=== PATIENT | male | born 1985 | race African-American/Black ===

== ENCOUNTER 2016-09-05 20:28 | Inpatient (IN) | payer BC ==
[2016-09-05] MEDS ORDERED: Pantoprazole 40 MG Vial IVPUSH ONE (20:46)
[2016-09-05] MEDS ORDERED: Ondansetron 4 MG/2 ML SDV IVPUSH ONE ×2 (20:46→23:45)
[2016-09-05] MEDS ORDERED: Sodium Chloride 0.9% 10 ML Syringe FLUSH PRN (20:46)
[2016-09-05] MEDS ORDERED: Sodium Chloride 0.9% 1,000 ML IV ONE (20:46)
[2016-09-05] MEDS ORDERED: HYDROmorphone 2 MG/ML Syringe IVPUSH ONE ×2 (20:46→22:35)
[2016-09-05] MEDS ORDERED: Sodium Chloride 0.9% 2.5 ML Syringe FLUSH PRN (20:46)
--- NOTE | 2016-09-05 20:53 | EDM.PDOC ---
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 Sierra at [facility] for GI care and here locally for our clinic. 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 He has had an extensive scar but no history of bowel obstructions after the surgery. He has had multiple polyps removed with his endoscopies in the past. He has no history of ulcer disease. Patient states he has had intermittent episodes of mid abdominal and epigastric pain in the past but they have never lasted very long. He states he is supposed to eat high-fiber diet and push hydration but he is not very good with his diet. The patient states he normally has 4-5 bowel movements a day which are loose but never watery black or bloody and today he only had one bowel movement which is unusual for him. Patient presents today with periumbilical pain that started this morning around 7 AM but seemed to side on its own and then the pain returned again around 12 noon after eating some chips and drinking Gatorade. Patient states he feels very bloated and has had nausea and vomiting this afternoon but not continuously. He's had normal urine output and has had no fevers. Patient with a bowel movement today denies any black or bloody stools. He does not have any chest pain or shortness of breath and states the pain is localized in the periumbilical area and it does not migrate it has been constant since 12 noon. It does come and go in intensity it is crampy in nature. Patient did not take any medications prior to coming here. Patient does have a followup scheduled with Dr. Sierra in October for an upper endoscopy and a colonoscopy. Review of systems: As per history of present illness and below otherwise all systems reviewed and negative. Past medical history: As per history of present illness and as reviewed below otherwise noncontributory. Surgical history: As per history of present illness and as reviewed below otherwise noncontributory. Social history: No reported history of drug or alcohol abuse. Family history: As per history of present illness and as reviewed below otherwise noncontributory. Physical exam: General: Well-developed thin male who is nontoxic but looks uncomfortable in the room with speaking clearly and easily. HEENT: Atraumatic, normocephalic, pupils reactive, negative for conjunctival pallor or scleral icterus, mucous membranes tacky, throat clear, neck supple, nontender, trachea midline. Lungs: Clear to auscultation, breath sounds equal bilaterally, chest nontender. Heart: S1S2, regular, negative for clicks, rubs, or JVD. Abdomen: Soft, nondistended, there is an extensive periumbilical scar without any evidence of hernial defects but there is discrete tenderness in this region with some voluntary guarding but no involuntary guarding. There is tympany on percussion throughout the entire upper abdomen and there is some mild diffuse tenderness throughout the lower abdomen. Bowel sounds are very hypoactive Negative for masses or hepatosplenomegaly. Negative for costovertebral tenderness. Pelvis: Stable nontender. Genitourinary: Deferred. Rectal: Deferred. Extremities: Atraumatic, negative for cords or calf pain. Neurovascular unremarkable. Neuro: Awake, alert, oriented. Cranial nerves II through XII unremarkable. Cerebellum unremarkable. Motor and sensory unremarkable throughout. Exam nonfocal. Diagnostics: CBC CMP amylase lipase lactic acid UA and CT scan of the abdomen and pelvis Therapeutics: IV fluids Protonix Dilaudid Zofran 2310: All testing results were discussed with the patient and at bedside and the patient is agreeable to admission. I discussed the case with our surgeon aws consultant Dr. Wilder at [phone] and with our hospitalist Dr. Farooq at [phone]. They're aware of the patient's history presentation and testing results and are agreeable for admission and consultation. I will write for maintenance fluids and have advised the patient move yesterday bowel rest until he is seen in the morning. Impression: Small bowel obstruction Definitive disposition and diagnosis as appropriate pending reevaluation and review of above. abdominal Pain Score (Numeric/FACES): 8 - Related Data Allergies Allergy/AdvReac Type Severity Reaction Status Date / Time aspirin Allergy Abdominal Verified 09/05/16 20:31 Pain Home Meds: Home Meds Omeprazole Magnesium [Prilosec] 10 mg PO DAILY 09/05/16 [History] Past Medical History HEENT History: Reports: None Cardiovascular History: Reports: None Respiratory History: Reports: None Gastrointestinal History: Reports: Colon polyp Genitourinary History: Reports: None Musculoskeletal History: Reports: None Neurological History: Reports: None Psychiatric History: Reports: None Endocrine/Metabolic History: Reports: None - Infectious Disease History Infectious Disease History: Reports: None Social & Family History - Family History Family Medical History: Noncontributory - Tobacco Use Smoking Status *Q: Never Smoker - Caffeine Use Caffeine Use: Reports: None - Recreational Drug Use Recreational Drug Use: No ED ROS GENERAL - Review of Systems Review Of Systems: ROS reveals no pertinent complaints other than HPI. ED EXAM, GENERAL - Physical Exam Exam: See Below (See dictation) Course - Vital Signs Last Recorded V/S: Last Vital Signs Temp 36.6 C 09/05/16 20:32 Pulse 69 09/05/16 22:22 Resp 18 09/05/16 22:22 BP 116/61 09/05/16 22:22 Pulse Ox 99 09/05/16 22:22 - Orders/Labs/Meds Orders: Active Orders 24 hr Category Date Time Status Patient Status [ADT] Stat ADT 09/05/16 23:10 Ordered Notify Provider Consults [RC] ASDIRECTED Care 09/05/16 23:04 Active Consult to Physician [CONS] Stat Cons 09/05/16 23:04 Active Abdomen Pelvis w Cont [CT] Stat Exams 09/05/16 20:46 Taken Sodium Chloride 0.9% [Normal Saline] 1,000 ml Med 09/05/16 23:15 Ordered IV ASDIRECTED Sodium Chloride 0.9% [Saline Flush] Med 09/05/16 20:46 Active 10 ml FLUSH ASDIRECTED PRN Sodium Chloride 0.9% [Saline Flush] Med 09/05/16 20:46 Active 2.5 ml FLUSH ASDIRECTED PRN Saline Lock Insert [OM.PC] Stat Oth 09/05/16 20:45 Ordered Medication Orders Sodium Chloride (Saline Flush) 10 ml FLUSH ASDIRECTED PRN PRN Reason: Keep Vein Open Sodium Chloride (Saline Flush) 2.5 ml FLUSH ASDIRECTED PRN PRN Reason: Keep Vein Open Labs: Laboratory Tests 09/05/16 09/05/16 09/05/16 Range/Units 21:20 21:20 21:20 WBC 9.46 (4.0-11.0) K/uL RBC 7.00 H (4.50-5.90) M/uL Hgb 12.3 L (13.0-17.0) g/dL Hct 37.8 L (38.0-50.0) % MCV 54.0 L (80.0-98.0) fL MCH 17.6 L (27.0-32.0) pg MCHC 32.5 (31.0-37.0) g/dL RDW Std Deviation 41.7 (28.0-62.0) fl RDW Coeff of David 23 H (11.0-15.0) % Plt Count 305 (150-400) K/uL Neut % (Auto) 75.6 (48.0-80.0) % Lymph % (Auto) 19.2 (16.0-40.0) % Hanson % (Auto) 4.7 (0.0-15.0) % Eos % (Auto) 0.3 (0.0-7.0) % Baso % (Auto) 0.2 (0.0-1.5) % Neut # 7.2 H (1.4-5.7) K/uL Lymph # 1.8 (0.6-2.4) K/uL Hanson # 0.4 (0.0-0.8) K/uL Eos # 0.0 (0.0-0.7) K/uL Baso # 0.0 (0.0-0.1) K/uL Nucleated RBC % 0.0 /100WBC Nucleated RBCs # 0 K/uL Lactate 2.1 H (0.20-2.00) mmol/L Sodium 141 (136-146) mmol/L Potassium 3.7 (3.5-5.1) mmol/L Chloride 105 (98-110) mmol/L Carbon Dioxide 23 (21-31) mmol/L BUN 7 (6.0-23.0) mg/dL Creatinine 0.9 (0.6-1.5) mg/dL Est Cr Clr Drug Dosing 116.74 mL/min Estimated GFR (MDRD) > 60.0 ml/min Glucose 108 (60-110) mg/dL Calcium 9.8 (8.8-10.8) mg/dL Total Bilirubin 1.4 (0.1-1.5) mg/dL AST 26 (5-40) IU/L ALT 29 (8-54) IU/L Alkaline Phosphatase 77 (40-150) Total Protein 7.6 (6.0-8.0) g/dL Albumin 4.3 (3.5-5.0) g/dL Globulin 3.3 (2.0-3.5) g/dL Albumin/Globulin Ratio 1.3 (1.3-2.8) Amylase 77 (10-90) U/L Lipase 18 (7-80) U/L Urine Color Urine Appearance Urine pH (5.0-8.0) Ur Specific [place] (1.001-1.035) Urine Protein (NEGATIVE) mg/dL Urine Glucose (UA) (NEGATIVE) mg/dL Urine Ketones (NEGATIVE) mg/dL Urine Occult Blood (NEGATIVE) Urine Nitrite (NEGATIVE) Urine Bilirubin (NEGATIVE) Urine Urobilinogen (<2.0) EU/dL Ur Leukocyte Esterase (NEGATIVE) Urine RBC (0-2/HPF) Urine WBC (0-5/HPF) Ur Epithelial Cells (NONE-FEW) Amorphous Sediment (NEGATIVE) Urine Bacteria (NEGATIVE) Urine Mucus (NONE-MOD) 09/05/16 Range/Units 22:13 WBC (4.0-11.0) K/uL RBC (4.50-5.90) M/uL Hgb (13.0-17.0) g/dL Hct (38.0-50.0) % MCV (80.0-98.0) fL MCH (27.0-32.0) pg MCHC (31.0-37.0) g/dL RDW Std Deviation (28.0-62.0) fl RDW Coeff of David (11.0-15.0) % Plt Count (150-400) K/uL Neut % (Auto) (48.0-80.0) % Lymph % (Auto) (16.0-40.0) % Hanson % (Auto) (0.0-15.0) % Eos % (Auto) (0.0-7.0) % Baso % (Auto) (0.0-1.5) % Neut # (1.4-5.7) K/uL Lymph # (0.6-2.4) K/uL Hanson # (0.0-0.8) K/uL Eos # (0.0-0.7) K/uL Baso # (0.0-0.1) K/uL Nucleated RBC % /100WBC Nucleated RBCs # K/uL Lactate (0.20-2.00) mmol/L Sodium (136-146) mmol/L Potassium (3.5-5.1) mmol/L Chloride (98-110) mmol/L Carbon Dioxide (21-31) mmol/L BUN (6.0-23.0) mg/dL Creatinine (0.6-1.5) mg/dL Est Cr Clr Drug Dosing mL/min Estimated GFR (MDRD) ml/min Glucose (60-110) mg/dL Calcium (8.8-10.8) mg/dL Total Bilirubin (0.1-1.5) mg/dL AST (5-40) IU/L ALT (8-54) IU/L Alkaline Phosphatase (40-150) Total Protein (6.0-8.0) g/dL Albumin (3.5-5.0) g/dL Globulin (2.0-3.5) g/dL Albumin/Globulin Ratio (1.3-2.8) Amylase (10-90) U/L Lipase (7-80) U/L Urine Color YELLOW Urine Appearance SLT CLOUDY Urine pH 7.0 (5.0-8.0) Ur Specific [place] 1.020 (1.001-1.035) Urine Protein TRACE (NEGATIVE) mg/dL Urine Glucose (UA) NEGATIVE (NEGATIVE) mg/dL Urine Ketones 15 H (NEGATIVE) mg/dL Urine Occult Blood NEGATIVE (NEGATIVE) Urine Nitrite NEGATIVE (NEGATIVE) Urine Bilirubin NEGATIVE (NEGATIVE) Urine Urobilinogen 0.2 (<2.0) EU/dL Ur Leukocyte Esterase NEGATIVE (NEGATIVE) Urine RBC 0-2 (0-2/HPF) Urine WBC 0-2 (0-5/HPF) Ur Epithelial Cells RARE (NONE-FEW) Amorphous Sediment LIGHT (NEGATIVE) Urine Bacteria FEW (NEGATIVE) Urine Mucus LIGHT (NONE-MOD) Meds: Medications Generic Name Dose Route Start Last Admin Trade Name Freq PRN Reason Stop Dose Admin Sodium Chloride 10 ml 09/05/16 20:46 Saline Flush FLUSH ASDIRECTED PRN Keep Vein Open Sodium Chloride 2.5 ml 09/05/16 20:46 Saline Flush FLUSH ASDIRECTED PRN Keep Vein Open Discontinued Medications Generic Name Dose Route Start Last Admin Trade Name Perezq PRN Reason Stop Dose Admin Hydromorphone HCl 1 mg 09/05/16 20:46 09/05/16 21:21 Dilaudid IVPUSH 09/05/16 20:47 1 mg ONETIME ONE Administration Hydromorphone HCl 1 mg 09/05/16 22:35 09/05/16 22:38 Dilaudid IVPUSH 09/05/16 22:36 1 mg ONETIME ONE Administration Sodium Chloride 1,000 mls @ 999 mls/hr 09/05/16 20:46 09/05/16 20:57 Normal Saline IV 09/05/16 21:46 999 mls/hr STAT ONE Administration Iopamidol 100 ml 09/05/16 21:24 Isovue Multipack-370 (76%) IVPUSH 09/05/16 21:25 ONETIME STA Ondansetron HCl 4 mg 09/05/16 20:46 09/05/16 21:20 Zofran IVPUSH 09/05/16 20:47 4 mg ONETIME ONE Administration Pantoprazole Sodium 80 mg 09/05/16 20:46 09/05/16 21:20 Protonix Iv IVPUSH 09/05/16 20:47 80 mg .BOLUS ONE Administration Departure - Departure Time of Disposition: 23:12 Disposition: Refer to Observation Condition: good Clinical Impression: Small bowel obstruction Forms: ED Department Discharge - My Orders Last 24 Hours: My Active Orders 09/05/16 20:45 Saline Lock Insert [OM.PC] Stat 09/05/16 20:46 Abdomen Pelvis w Cont [CT] Stat Sodium Chloride 0.9% [Saline Flush] 10 ml FLUSH ASDIRECTED PRN Sodium Chloride 0.9% [Saline Flush] 2.5 ml FLUSH ASDIRECTED PRN 09/05/16 23:04 Notify Provider Consults [RC] ASDIRECTED Consult to Physician [CONS] Stat 09/05/16 23:10 Patient Status [ADT] Stat 09/05/16 23:15 Sodium Chloride 0.9% [Normal Saline] 1,000 ml IV ASDIRECTED - Assessment/Plan Last 24 Hours: My Active Orders 09/05/16 20:45 Saline Lock Insert [OM.PC] Stat 09/05/16 20:46 Abdomen Pelvis w Cont [CT] Stat Sodium Chloride 0.9% [Saline Flush] 10 ml FLUSH ASDIRECTED PRN Sodium Chloride 0.9% [Saline Flush] 2.5 ml FLUSH ASDIRECTED PRN 09/05/16 23:04 Notify Provider Consults [RC] ASDIRECTED Consult to Physician [CONS] Stat 09/05/16 23:10 Patient Status [ADT] Stat 09/05/16 23:15 Sodium Chloride 0.9% [Normal Saline] 1,000 ml IV ASDIRECTED
[2016-09-05] MEDS ORDERED: Iopamidol 755 MG/ML 500 ML Multipack Bottle IVPUSH STA (21:24)
[2016-09-05 21:55] LABS: CHLORIDE,CL 105 mmol/L (98-110); SODIUM,NA 141 mmol/L (136-146)
[2016-09-05] MEDS ORDERED: Sodium Chloride 0.9% 1,000 ML IV SCH (23:15)
[2016-09-06] MEDS ORDERED: HYDROmorphone 2 MG/ML Syringe IVPUSH PRN ×3 (00:43→01:02)
[2016-09-06] MEDS: Sodium Chloride 0.9% 1,000 ML IV SCH ×3 (03:15→19:05)
[2016-09-06] MEDS: HYDROmorphone 1 MG/ML Syringe IVPUSH PRN ×5 (03:32→21:32)
[2016-09-06] MEDS: Ondansetron 4 MG/2 ML SDV IVPUSH PRN ×3 (05:13→21:29)
--- NOTE | 2016-09-06 08:08 | PCM.HP ---
H&P History of Present Illness - General Date of Service: 09/06/16 Admit Problem/Dx: Admission Diagnosis/Problem Admission Diagnosis/Problem Small bowel obstruction Source of Information: Patient History Limitations: Reports: No limitations - History of Present Illness Initial Comments - Free Text/Narative: This 31 year old male with pmh of Peutz-Jeghers syndrome and abdominal surgery for bowel resection "years ago" and has mesh in place. He states he normally has 4-5 bowel movements a day which are loose. he has not noticed black or bloody stools. Yesterday he had only 1 BM which is unusual for him. He presented to the ED with periumbilical pain that started yesterday morning around 7 am, but subsided on its own. Then around 12 noon after eating chips and gatorade he started feeling very bloated and have nausea and vomiting intermittently. He denies fevers, chest pain or palpitations or SOB. The pain is localized to upper mid abdomen and periumbilical and is constant with intermittently cramping and increase in pain. He does not smoke or use tobacco products, he drinks approximately 1 beer a day, and denies recreational drug use. In the ED, WBC 9,460, hgb 12.3. lactate 2.1, BUN 7 Cr 0.9. UA negative. A CT Abd /pelvis was obtained which revealed "small bowel obstruction, no definite transition point identified. Small bowel intussesception within the LLQ, but this did not appear to be the cause of the small bowel obstruction since bowel loops directly proximal to this are not dilated, a mass lesion acting as a lead point can not be excluded, GI consultation is recommended, post operative changes of the ileococlic anastomosis and ventral herniorrhaphy". General Surgeon, Dr. David Wilder was consulted regarding this admission. He recommended conservative treatment, but to also contact GI specialist, Dr. Sierra in [place] who sees patient. I spoke with Dr. Sierra regarding patient admission and SBO. He reports Kieran is supposed to follow yearly for EGD/colonoscopy due to pmh. He has not been seen in over 3 years. He is suspicious this obstruction could be caused by a polyp, in which case he recommended transfer to a tertiary center such as [facility] or [facility] where they would be able to perform double balloon enteroscopy and locate the polyp. abdominal Pain Score (Numeric/FACES): 5 - Related Data Allergies/Adverse Reactions: Allergies Allergy/AdvReac Type Severity Reaction Status Date / Time aspirin Allergy Abdominal Verified 09/05/16 20:31 Pain Home Medications: Home Meds Omeprazole Magnesium [Prilosec] 10 mg PO DAILY 09/05/16 [History] Past Medical History HEENT History: Reports: Impaired vision Cardiovascular History: Reports: None. Denies: CAD, High cholesterol, Hypertension, CA Respiratory History: Reports: None. Denies: COPD, PE Gastrointestinal History: Reports: Colon polyp, GERD. Denies: GI bleed Other Gastrointestinal History: Peutz-Jeghers syndrome Genitourinary History: Reports: None Musculoskeletal History: Reports: None Neurological History: Reports: None Psychiatric History: Reports: None Endocrine/Metabolic History: Reports: None - Infectious Disease History Infectious Disease History: Reports: None - Past Surgical History HEENT Surgical History: Reports: None GI Surgical History: Reports: Appendectomy, Colonoscopy, EGD, Hernia, abdominal , Hernia repair/other, Polypectomy Other GI Surgeries/Procedures: tumor removal, small intestine bowel resection Social & Family History - Family History Family Medical History: Noncontributory - Tobacco Use Smoking Status *Q: Former Smoker Tobacco Use Comment: quit 2-3 yrs ago - Caffeine Use Caffeine Use: Reports: Energy drinks - Alcohol Use Days Per Week of Alcohol Use: 7 Number of Drinks Per Day: 1 Total Drinks Per Week: 7 Date of Last Drink: 09/04/16 Alcohol Use Frequency: Daily - Recreational Drug Use Recreational Drug Use: Yes Drug Use in Last 12 Months: No Recreational Drug Type: Reports: Marijuana/Hashish - Living Situation & Occupation Living situation: Reports: , with family Occupation: employed H&P Review of Systems - Review of Systems: Review Of Systems: See Below General: Reports: no symptoms. Denies: fever, chills, malaise HEENT: Reports: no symptoms. Denies: headaches, sinus congestion, vertigo Pulmonary: Reports: No Symptoms. Denies: Shortness of Breath, Cough, Sputum Cardiovascular: Reports: no symptoms. Denies: chest pain, edema Gastrointestinal: Reports: Abdominal pain (midline upper abdomen and periumbilical), Distension, Nausea, Vomiting. Denies: Black stool, Bloody stool , Diarrhea, Flatus Genitourinary: Reports: no symptoms. Denies: dysuria, frequency, burning, pain Musculoskeletal: Reports: no symptoms. Denies: neck pain Skin: Reports: no symptoms Psychiatric: Reports: no symptoms Neurological: Reports: No Symptoms Hematologic/Lymphatic: Reports: no symptoms Immunologic: Reports: no symptoms Exam - Exam Exam: See Below - Vital Signs Vital Signs: Last Vital Signs Temp 97.4 F 09/06/16 04:00 Pulse 61 09/06/16 04:00 Resp 18 09/06/16 04:00 BP 104/64 09/06/16 04:00 Pulse Ox 99 09/06/16 04:00 Weight: 83.28 kg - Exam General: alert, oriented, cooperative HEENT: Conjunctiva clear, EACs clear, EOMI, Hearing intact, Mucosa moist & pink , Nares patent, Posterior pharynx clear Neck: supple, trachea midline, 2 Lungs: Clear to auscultation, Normal respiratory effort Cardiovascular: regular rate, regular rhythm Abdomen: soft, distention (slight distension ), tenderness (midline upper abdomen and periumbilical), hypoactive bowel sounds. No: guarding, rigidity, rebound, tympanic bowel sounds, mass Extremities: 3, normal inspection, 10 Peripheral Pulses: 2+: posterior tibial (L), posterior tibial (R), dorsalis pedis (L), dorsalis pedis (R) Neuro Extensive - Mental Status: alert, oriented x3, normal mood/affect, normal cognition Neuro Extensive - Motor, Sensory, Reflexes: CN II-XII intact, normal gait, normal reflexes Psychiatric: alert, normal affect, normal mood - Patient Data Lab Results last 24 hrs: Laboratory Results - last 24 hr 09/06/16 Range/Units 02:58 Lactate 0.6 (0.20-2.00) mmol/L Result Diagrams: 09/06/16 02:58 09/06/16 02:58 *Q Meaningful Use (ADM) - VTE *Q VTE Criteria *Q: - VTE Risk Assess *Q Each Risk Factor Represents 1 Point: History of Prior Major Surgery Total Score 1 Point Risk Factors: 1 Each Risk Factor Represents 2 Points: None Total Score 2 Point Risk Factors: 0 Each Risk Factor Represents 3 Points: None Total Score 3 Point Risk Factors: 0 Each Risk Factor Represents 5 Points: None Total Score 5 Point Risk Factors: 0 Venous Thromboembolism Risk Factor Score *Q: 1 - Stroke *Q Stroke Criteria *Q: - AMI *Q AMI Criteria *Q: - Problem List (1) Peutz-Jeghers syndrome SNOMED Code(s): 59456176 ICD Code: Q85.8 - OTHER PHAKOMATOSES, NOT ELSEWHERE CLASSIFIED Status: Acute Priority: High Current Visit: Yes (2) Small bowel obstruction SNOMED Code(s): 429008392 ICD Code: K56.69 - OTHER INTESTINAL OBSTRUCTION Status: Acute Priority: High Current Visit: Yes (3) Hx of resection of small bowel SNOMED Code(s): 327404043, 807028527 ICD Code: Z90.49 - ACQUIRED ABSENCE OF OTHER SPECIFIED PARTS OF DIGESTIVE TRACT Status: Acute Current Visit: Yes Problem List Initiated/Reviewed/Updated: Yes Orders Last 24hrs: Active Orders 24 hr Category Date Time Status Nothing Per Oral Diet [DIET] Diet 09/06/16 Breakfast Active BMP [BASIC METABOLIC PANEL,BMP] [CHEM] Routine Lab 09/06/16 08:07 Ordered CBC WITH AUTO DIFF [HEME] Routine Lab 09/06/16 08:07 Ordered HYDROmorphone [Dilaudid] Med 09/06/16 01:24 Active 0.5 mg IVPUSH Q2H PRN Ondansetron [Zofran] Med 09/06/16 00:43 Active 4 mg IVPUSH Q4H PRN Sodium Chloride 0.9% [Normal Saline] 1,000 ml Med 09/06/16 00:45 Active IV ASDIRECTED Medication Orders Hydromorphone HCl (Dilaudid) 0.5 mg IVPUSH Q2H PRN PRN Reason: Pain Last Admin: 09/06/16 05:32 Dose: 0.5 mg Admin: 09/06/16 03:32 Dose: 0.5 mg Sodium Chloride (Normal Saline) 1,000 mls @ 125 mls/hr IV ASDIRECTED LOLA Last Admin: 09/06/16 03:15 Dose: 125 mls/hr Ondansetron HCl (Zofran) 4 mg IVPUSH Q4H PRN PRN Reason: Nausea/Vomiting Last Admin: 09/06/16 05:13 Dose: 4 mg Sodium Chloride (Saline Flush) 10 ml FLUSH ASDIRECTED PRN PRN Reason: Keep Vein Open Sodium Chloride (Saline Flush) 2.5 ml FLUSH ASDIRECTED PRN PRN Reason: Keep Vein Open Assessment/Plan Comment:: This 31 year old male admitted with SBO and pmh of Puetz Jeghers syndrome 1. SBO: IVF NS 125. Spoke with Dr Wilder, general surgeon who recommends NPO and conservative treatment for now. If no improvement he would recommend transfer to tertiary center for surgery due to Peutz Jeghers syndrome and extensive history of abdominal surgeries. Continue NPO, dilaudid and zofran PRN. Place NG tube now and apply LIWS. I contact patient's GI specialist in [place], [place]. Dr. Sierra, who recommended transfer due to likelyhood of polyp causing obstruction. Conservative treatment could ultimately delay treatment. VTE: SCDS Dispo: 2-4 days. transfer to inpatient status. Spoke with Dr. Oviedo, GI specialist from [facility] regarding patient and possible transfer. He recommended conservative treatment at this time, NPO, NG to LIWS, IVFs and pain medication. He would treat much the same. He recommends give him 48-72 hours with this treatment. If SBO does not open up and NG is still draining call him back and he could consider transfer at that time for possible surgery. He does not recommend double balloon enteroscopy with a current obstruction, this would be done at a later point to evaluate for a polyp. If with this treatment the SBO resolves, he is to follow up with Dr. Sierra in [place], [place], if he were to feel he needs referral to [facility] or their assistance they would gladly accept a referral. I notified both Dr. Farooq and Dr. Wilder of the above conversation and both are in agreement with treatment plan. Patient and update and agree with plan moving forward.
[2016-09-06 08:32] LABS: CHLORIDE,CL 110 mmol/L (98-110); SODIUM,NA 143 mmol/L (136-146)
--- NOTE | 2016-09-06 08:55 | PCM.CONS ---
H&P History of Present Illness - General Date of Service: 09/06/16 Admit Problem/Dx: Admission Diagnosis/Problem Admission Diagnosis/Problem Small bowel obstruction, abdominal pain, nausea & vomiting Source of Information: Patient History Limitations: Reports: No limitations - History of Present Illness Onset of Symptoms: Reports: gradual Symptom Onset Date: 09/05/16 Symptom Onset Time: 12:00 Duration of Symptoms: Reports: Day(s):, Chronic, Colic, Intermittent, Recurring Location: Reports: abdomen Quality: Reports: Sharp, Stabbing Improves with: Reports: Rest Worsens with: Reports: None Context: Reports: sick contact Associated Symptoms: Reports: loss of appetite, nausea/vomiting. Denies: shortness of breath abdominal Pain Score (Numeric/FACES): 5 - Related Data Allergies/Adverse Reactions: Allergies Allergy/AdvReac Type Severity Reaction Status Date / Time aspirin Allergy Abdominal Verified 09/05/16 20:31 Pain Home Medications: Home Meds Omeprazole Magnesium [Prilosec] 10 mg PO DAILY 09/05/16 [History] Past Medical History HEENT History: Reports: Impaired vision Cardiovascular History: Reports: None Respiratory History: Reports: None Gastrointestinal History: Reports: Colon polyp Other Gastrointestinal History: Peutz-Jeghers syndrome Genitourinary History: Reports: None Musculoskeletal History: Reports: None Neurological History: Reports: None Psychiatric History: Reports: None Endocrine/Metabolic History: Reports: None - Infectious Disease History Infectious Disease History: Reports: None - Past Surgical History HEENT Surgical History: Reports: None GI Surgical History: Reports: Appendectomy, Colonoscopy, EGD, Hernia, abdominal , Hernia repair/other, Polypectomy Other GI Surgeries/Procedures: tumor removal, small intestine bowel resection Social & Family History - Family History Family Medical History: Noncontributory - Tobacco Use Smoking Status *Q: Former Smoker Tobacco Use Comment: quit 2-3 yrs ago - Caffeine Use Caffeine Use: Reports: Energy drinks - Alcohol Use Days Per Week of Alcohol Use: 7 Number of Drinks Per Day: 1 Total Drinks Per Week: 7 Date of Last Drink: 09/04/16 - Recreational Drug Use Recreational Drug Use: Yes Drug Use in Last 12 Months: No Recreational Drug Type: Reports: Marijuana/Hashish H&P Review of Systems - Review of Systems: Review Of Systems: See Below General: Reports: decreased appetite. Denies: fever, chills, malaise, diaphoresis HEENT: Reports: no symptoms Pulmonary: Denies: shortness of breath Cardiovascular: Denies: chest pain Gastrointestinal: Reports: Abdominal pain, Constipation, Decreased appetite, Distension, Nausea, Vomiting. Denies: Black stool, Bloody stool, Diarrhea, Flatus, Hematemesis, Hematochezia, Melena, Stool incontinence Genitourinary: Denies: dysuria, frequency, burning, pain, urgency Musculoskeletal: Reports: no symptoms Skin: Reports: no symptoms Psychiatric: Reports: no symptoms Neurological: Reports: no symptoms Hematologic/Lymphatic: Reports: anemia. Denies: easy bleeding, easy bruising Immunologic: Reports: no symptoms Exam - Exam Exam: See Below - Vital Signs Vital Signs: Last Vital Signs Temp 97.4 F 09/06/16 04:00 Pulse 61 09/06/16 04:00 Resp 18 09/06/16 04:00 BP 104/64 09/06/16 04:00 Pulse Ox 99 09/06/16 04:00 Weight: 183 lb 9.6 oz - Exam General: alert, oriented, cooperative, mild distress HEENT: Conjunctiva clear, EACs clear, EOMI. No: Scleral icterus Neck: supple, trachea midline, 2+ carotid pulse wo bruit. No: carotid bruit Lungs: Clear to auscultation, Normal respiratory effort Cardiovascular: regular rate, regular rhythm, normal S1, normal S2. No: bradycardia, tachycardia, systolic murmur, diastolic murmur Abdomen: soft, tenderness (slight epigastric tenderness), hypoactive bowel sounds, other (Midline wide incision remains well healed with no evidence of recurrent hernia). No: peritoneal signs, distention, guarding, rigidity, rebound, hernia, McBurney's sign, Rovsing's sign, Ely's sign (Male) Exam: No hernia, Normal inspection Rectal (Males) Exam: Deferred Back Exam: normal inspection Extremities: normal inspection, normal pulses Skin: warm, dry, intact Psychiatric: alert, normal affect, normal mood - Patient Data Lab Results last 24 hrs: Laboratory Results - last 24 hr 09/06/16 09/06/16 09/06/16 Range/Units 02:58 02:58 02:58 WBC 7.99 (4.0-11.0) K/uL RBC 6.09 H (4.50-5.90) M/uL Hgb 10.6 L (13.0-17.0) g/dL Hct 33.5 L (38.0-50.0) % MCV 55.0 L (80.0-98.0) fL MCH 17.4 L (27.0-32.0) pg MCHC 31.6 (31.0-37.0) g/dL RDW Std Deviation 42.4 (28.0-62.0) fl RDW Coeff of David 22 H (11.0-15.0) % Plt Count 274 (150-400) K/uL Neut % (Auto) 79.9 (48.0-80.0) % Lymph % (Auto) 14.1 L (16.0-40.0) % [place] % (Auto) 5.6 (0.0-15.0) % Eos % (Auto) 0.1 (0.0-7.0) % Baso % (Auto) 0.3 (0.0-1.5) % Neut # 6.4 H (1.4-5.7) K/uL Lymph # 1.1 (0.6-2.4) K/uL [place] # 0.5 (0.0-0.8) K/uL Eos # 0.0 (0.0-0.7) K/uL Baso # 0.0 (0.0-0.1) K/uL Nucleated RBC % 0.0 /100WBC Nucleated RBCs # 0 K/uL Lactate 0.6 (0.20-2.00) mmol/L Sodium 143 (136-146) mmol/L Potassium 4.0 (3.5-5.1) mmol/L Chloride 110 (98-110) mmol/L Carbon Dioxide 24 (21-31) mmol/L BUN 5 L (6.0-23.0) mg/dL Creatinine 0.8 (0.6-1.5) mg/dL Est Cr Clr Drug Dosing 131.34 mL/min Estimated GFR (MDRD) > 60.0 ml/min Glucose 93 (60-110) mg/dL Calcium 8.3 L (8.8-10.8) mg/dL Result Diagrams: 09/06/16 02:58 09/06/16 02:58 Consult PN Assessment/Plan Procedures: Procedures COMPLETE CBC AUTOMATED (08/17/16) METABOLIC PANEL TOTAL CA (08/17/16) ROUTINE VENIPUNCTURE (08/17/16) URINALYSIS AUTO W/SCOPE (08/17/16) (1) Ileus SNOMED Code(s): 818145546 Code(s): K56.7 - ILEUS, UNSPECIFIED Priority: High Current Visit: Yes (2) Peutz-Jeghers syndrome SNOMED Code(s): 67922025 Code(s): Q85.8 - OTHER PHAKOMATOSES, NOT ELSEWHERE CLASSIFIED Priority: High Current Visit: Yes (3) History of incisional hernia repair SNOMED Code(s): 200474279 Code(s): Z98.890 - OTHER SPECIFIED POSTPROCEDURAL STATES; Z87.19 - PERSONAL HISTORY OF OTHER DISEASES OF THE DIGESTIVE SYSTEM Priority: High Current Visit: Yes (4) Small bowel obstruction SNOMED Code(s): 209987110 Code(s): K56.69 - OTHER INTESTINAL OBSTRUCTION Priority: High Current Visit: Yes Problem List Initiated/Reviewed/Updated: Yes Plan: Differential includes ileus/small bowel obstruction/non-obstructing intussusception. No BM since yesterday and no flatus. CT scan does not show a transition point. Small bowel appears adherent to midline mesh from incisional hernia repair. Patient has been seen by Dr. Sierra and is supposed to have annual endoscopy for his Peutz-Jeghers syndrome. It has been 2-2.5 years since his last endoscopic evaluation. RECOMMEND: 1)Repeat flat/upright abdomen today. 2) Consider Dulcolax suppository. 3) Encourage ambulation. 4) Patient is high risk for development of a fistula if surgery is required. Should he not open up, would recommend surgery be done in a larger facility should a fistula develop and TPN be necessary
[2016-09-06] MEDS ORDERED: HYDROmorphone 2 MG/ML Syringe IVPUSH ONE ×2 (09:17→09:30)
[2016-09-06] MEDS ORDERED: HYDROmorphone 2 MG/ML Syringe IVPUSH SCH (09:25)
[2016-09-06] MEDS: Pantoprazole 40 MG in Sodium Chloride 0.9% 10 ML IVPUSH SCH (10:56)
--- NOTE | 2016-09-06 13:02 | CR ---
EXAMINATION: Abdomen HISTORY: Small bowel obstruction COMPARISON: 09/05/2016 TECHNIQUE: AP and upright views FINDINGS: There is no free air under the diaphragm. There is a small amount of stool and gas through out the colon. There are a few mildly dilated loops of small bowel again noted within the mid abdome n measuring up to 4.5 cm. Anastomosis sutures are noted within the right lower quadrant. No abnormal calcifications. No organomegaly. The visualized osseous structures appear normal. IMPRESSION: 1. There are a few persistent dilated loops of small bowel within the midabdomen, likely unchanged.
[2016-09-06] MEDS ORDERED: Benzocaine 20% Topical Spray UD MUCMEM ONE (14:25)
[2016-09-06] MEDS: Phenol 1.4% Oral Spray 177 ML Bottle MUCMEM PRN ×3 (15:16→21:37)
--- NOTE | 2016-09-06 15:45 | CR ---
EXAMINATION: Abdomen HISTORY: NG tube placement COMPARISON: Same day TECHNIQUE: Single view FINDINGS: There is a partially visualized NG tube projecting over the upper abdomen, however the carlos e-port position is not included on the film. Again noted are mildly prominent loops of small bowel.. Gas and stool is noted within the colon and rectum. No abnormal calcifications. Visualized osseous structures appear normal. IMPRESSION: 1. Partially visualized NG tube likely within the stomach however the side-port is not included. 2. Mildly dilated loops of small bowel consistent with a probable partial bowel obstruction.
[2016-09-07] MEDS: Sodium Chloride 0.9% 1,000 ML IV SCH ×3 (03:06→19:20)
[2016-09-07 05:30] LABS: CHLORIDE,CL 111 mmol/L (98-110); SODIUM,NA 142 mmol/L (136-146)
[2016-09-07] MEDS: Phenol 1.4% Oral Spray 177 ML Bottle MUCMEM PRN (09:12)
--- NOTE | 2016-09-07 09:24 | PCM.PN ---
- General Info Date of Service: 09/07/16 Admission Dx/Problem (Free Text): Admission Diagnosis/Problem Admission Diagnosis/Problem Small bowel obstruction Subjective Update: Patient continues to have mid abdominal pain this morning but improved with pain medication. No more nausea and vomiting. Has had no bowel movements or flatus. NG in place and to LIWS. No chest pain, palpitations, or sob. Functional Status: Reports: pain controlled - Review of Systems General: Denies: Fever, Weakness, Fatigue HEENT: Denies: sinus congestion, visual changes Pulmonary: Denies: shortness of breath, hemoptysis, wheezing Cardiovascular: Denies: Chest Pain, Palpitations, Edema Gastrointestinal: Reports: Abdominal pain. Denies: Flatus, Hematochezia, Melena , Nausea, Vomiting Genitourinary: Denies: dysuria, hematuria Musculoskeletal: Denies: leg pain, foot pain Skin: Denies: cyanosis, diaphoresis Neurological: Denies: Confusion, Dizziness, Headache Psychiatric: Reports: anxiety. Denies: confusion - Patient Data Vitals - most recent: Last Vital Signs Temp 36.6 C 09/07/16 04:00 Pulse 69 09/07/16 04:00 Resp 16 09/07/16 04:00 BP 115/72 09/07/16 04:00 Pulse Ox 98 09/07/16 04:00 Weight - most recent: 83.28 kg I&O - last 24 hours: Intake & Output 09/06/16 09/07/16 09/07/16 22:59 06:59 14:59 Intake Total 1000 1000 Output Total 1800 150 Balance -800 850 Lab Results last 24 hrs: Laboratory Results - last 24 hr 09/07/16 09/07/16 Range/Units 04:53 04:53 WBC 5.86 (4.0-11.0) K/uL RBC 6.03 H (4.50-5.90) M/uL Hgb 10.3 L (13.0-17.0) g/dL Hct 33.5 L (38.0-50.0) % MCV 55.6 L (80.0-98.0) fL MCH 17.1 L (27.0-32.0) pg MCHC 30.7 L (31.0-37.0) g/dL RDW Std Deviation 42.9 (28.0-62.0) fl RDW Coeff of David 22 H (11.0-15.0) % Plt Count 253 (150-400) K/uL Neut % (Auto) 68.6 (48.0-80.0) % Lymph % (Auto) 21.5 (16.0-40.0) % [place] % (Auto) 8.0 (0.0-15.0) % Eos % (Auto) 1.7 (0.0-7.0) % Baso % (Auto) 0.2 (0.0-1.5) % Neut # 4.0 (1.4-5.7) K/uL Lymph # 1.3 (0.6-2.4) K/uL [place] # 0.5 (0.0-0.8) K/uL Eos # 0.1 (0.0-0.7) K/uL Baso # 0.0 (0.0-0.1) K/uL Nucleated RBC % 0.0 /100WBC Nucleated RBCs # 0 K/uL Sodium 142 (136-146) mmol/L Potassium 3.8 (3.5-5.1) mmol/L Chloride 111 H (98-110) mmol/L Carbon Dioxide 21 (21-31) mmol/L BUN 6 (6.0-23.0) mg/dL Creatinine 0.8 (0.6-1.5) mg/dL Est Cr Clr Drug Dosing 131.34 mL/min Estimated GFR (MDRD) > 60.0 ml/min Glucose 65 (60-110) mg/dL Calcium 8.0 L (8.8-10.8) mg/dL Med Orders - Current: Current Medications Hydromorphone HCl (Dilaudid) 1 mg IVPUSH Q2H PRN PRN Reason: Pain Last Admin: 09/06/16 21:32 Dose: 1 mg Sodium Chloride (Normal Saline) 1,000 mls @ 125 mls/hr IV ASDIRECTED LOLA Last Admin: 09/07/16 03:06 Dose: 125 mls/hr Pantoprazole Sodium 40 mg/ (Sodium Chloride) 10 mls @ 300 mls/hr IVPUSH Q24H [facility] Last Admin: 09/06/16 10:56 Dose: 300 mls/hr Ondansetron HCl (Zofran) 4 mg IVPUSH Q4H PRN PRN Reason: Nausea/Vomiting Last Admin: 09/06/16 21:29 Dose: 4 mg Phenol/Menthol (Chloraseptic Throat [place]) 1 ml MUCMEM Q2H PRN PRN Reason: NG tube irritation Last Admin: 09/07/16 09:12 Dose: 2 spr Sodium Chloride (Saline Flush) 10 ml FLUSH ASDIRECTED PRN PRN Reason: Keep Vein Open Sodium Chloride (Saline Flush) 2.5 ml FLUSH ASDIRECTED PRN PRN Reason: Keep Vein Open Discontinued Medications Benzocaine (Hurricaine One 20%) 1 each MUCMEM ONETIME ONE Stop: 09/06/16 14:26 Last Admin: 09/06/16 14:56 Dose: 1 each Hydromorphone HCl (Dilaudid) 1 mg IVPUSH ONETIME ONE Stop: 09/05/16 20:47 Last Admin: 09/05/16 21:21 Dose: 1 mg Hydromorphone HCl (Dilaudid) 1 mg IVPUSH ONETIME ONE Stop: 09/05/16 22:36 Last Admin: 09/05/16 22:38 Dose: 1 mg Hydromorphone HCl (Dilaudid) 0.5 mg IVPUSH Q2H PRN PRN Reason: Pain Last Admin: 09/06/16 01:09 Dose: 0.5 mg Hydromorphone HCl (Dilaudid) 0.2 mg IVPUSH Q2H PRN PRN Reason: Pain Hydromorphone HCl (Dilaudid) 0.5 mg IVPUSH Q2H PRN PRN Reason: Pain Hydromorphone HCl (Dilaudid) 0.5 mg IVPUSH Q2H PRN PRN Reason: Pain Last Admin: 09/06/16 13:09 Dose: 0.5 mg Hydromorphone HCl (Dilaudid) 0.5 mg IVPUSH ONETIME LOLA Stop: 09/06/16 09:45 Last Admin: 09/06/16 09:32 Dose: 0.5 mg Sodium Chloride (Normal Saline) 1,000 mls @ 999 mls/hr IV STAT ONE Stop: 09/05/16 21:46 Last Admin: 09/05/16 20:57 Dose: 999 mls/hr Sodium Chloride (Normal Saline) 1,000 mls @ 150 mls/hr IV ASDIRECTED LOLA Last Infusion: 09/05/16 23:31 Dose: 150 mls/hr Iopamidol (Isovue Multipack-370 (76%)) 100 ml IVPUSH ONETIME STA Stop: 09/05/16 21:25 Last Admin: 09/05/16 21:00 Dose: 100 ml Ondansetron HCl (Zofran) 4 mg IVPUSH ONETIME ONE Stop: 09/05/16 20:47 Last Admin: 09/05/16 21:20 Dose: 4 mg Ondansetron HCl (Zofran) 4 mg IVPUSH ONETIME ONE Stop: 09/05/16 23:46 Last Admin: 09/05/16 23:49 Dose: 4 mg Pantoprazole Sodium (Protonix Iv) 80 mg IVPUSH .BOLUS ONE Stop: 09/05/16 20:47 Last Admin: 09/05/16 21:20 Dose: 80 mg - Exam Quality Assessment: DVT prophylaxis General: alert, oriented, cooperative, no acute distress HEENT: Pupils equal, Pupils reactive, EOMI, Mucous membr. moist/pink Neck: supple, trachea midline, no JVD Lungs: Clear to auscultation, Normal respiratory effort Cardiovascular: Regular Rate, Regular Rhythm, No Murmurs Abdomen: tenderness, distension, abnormal bowel sounds. No: guarding Extremities: no edema, normal pulses, no tenderness/swelling Skin: warm, dry, intact Wound/Incisions: healing well Neurological: no new focal deficit Psy/Mental Status: alert, normal affect, normal mood - Problem List & Annotations (1) Peutz-Jeghers syndrome SNOMED Code(s): 30946982 Code(s): Q85.8 - OTHER PHAKOMATOSES, NOT ELSEWHERE CLASSIFIED Status: Acute Priority: High Current Visit: Yes (2) Small bowel obstruction SNOMED Code(s): 097338141 Code(s): K56.69 - OTHER INTESTINAL OBSTRUCTION Status: Acute Priority: High Current Visit: Yes - Problem List Review Problem List Initiated/Reviewed/Updated: Yes - Plan Plan:: 31 year old male admitted with SBO with pmh of Puetz Jeghers syndrome. 1. SBO: Cont. IVF NS 125. Patient reports no flatus or bowel movements overnight. NG did have [address] Oviedo, GI specialist from [place], he recommends 48-72 hrs of observation before possible transfer to [place] for surgical intervention. After 24 hrs nausea and vomiting seemed to have improved but no flatus. Will talk with local surgeon Dr. Wilder today as well. Will Continue NPO, dilaudid, and zofran prn. Will also continue to keep in contact and let his local GI specialist in [place], Dr. Sierra, of his status. Up and ambulate today VTE: SCDS Dispo: 2-4 days. transfer to inpatient status. Addendum: After second rounds patient does report have one episode of flatus will continue to monitor if no improvement today will plan for transfer to [place] tomorrow.
--- NOTE | 2016-09-07 10:30 | PCM.CONSN ---
- General Info Date of Service: 09/07/16 Admission Dx/Problem (Free Text): Admission Diagnosis/Problem Admission Diagnosis/Problem Small bowel obstruction Subjective Update: Patient seen and examined earlier today. Denies significant pain. Has been ambulating. Denies flatus/BM. NG controlling nausea/vomiting. Functional Status: Reports: pain controlled, ambulating, urinating. Denies: new symptoms - Review of Systems General: Denies: Fever, Weakness HEENT: Reports: no symptoms Pulmonary: Denies: shortness of breath Cardiovascular: Denies: Chest Pain Gastrointestinal: Reports: Abdominal pain. Denies: Diarrhea, Flatus, Hematochezia, Melena, Nausea, Vomiting Genitourinary: Reports: no symptoms Musculoskeletal: Reports: no symptoms Skin: Reports: no symptoms Neurological: Reports: No Symptoms Psychiatric: Reports: no symptoms - Patient Data Vitals - most recent: Last Vital Signs Temp 97.8 F 09/07/16 04:00 Pulse 69 09/07/16 04:00 Resp 16 09/07/16 04:00 BP 115/72 09/07/16 04:00 Pulse Ox 98 09/07/16 04:00 Weight - most recent: 183 lb 9.6 oz I&O - last 24 hours: Intake & Output 09/06/16 09/07/16 09/07/16 19:59 03:59 11:59 Intake Total 1000 1000 0 Output Total 1800 150 Balance -800 1000 -150 Lab Results last 24 hrs: Laboratory Results - last 24 hr 09/07/16 09/07/16 Range/Units 04:53 04:53 WBC 5.86 (4.0-11.0) K/uL RBC 6.03 H (4.50-5.90) M/uL Hgb 10.3 L (13.0-17.0) g/dL Hct 33.5 L (38.0-50.0) % MCV 55.6 L (80.0-98.0) fL MCH 17.1 L (27.0-32.0) pg MCHC 30.7 L (31.0-37.0) g/dL RDW Std Deviation 42.9 (28.0-62.0) fl RDW Coeff of David 22 H (11.0-15.0) % Plt Count 253 (150-400) K/uL Neut % (Auto) 68.6 (48.0-80.0) % Lymph % (Auto) 21.5 (16.0-40.0) % [place] % (Auto) 8.0 (0.0-15.0) % Eos % (Auto) 1.7 (0.0-7.0) % Baso % (Auto) 0.2 (0.0-1.5) % Neut # 4.0 (1.4-5.7) K/uL Lymph # 1.3 (0.6-2.4) K/uL [place] # 0.5 (0.0-0.8) K/uL Eos # 0.1 (0.0-0.7) K/uL Baso # 0.0 (0.0-0.1) K/uL Nucleated RBC % 0.0 /100WBC Nucleated RBCs # 0 K/uL Sodium 142 (136-146) mmol/L Potassium 3.8 (3.5-5.1) mmol/L Chloride 111 H (98-110) mmol/L Carbon Dioxide 21 (21-31) mmol/L BUN 6 (6.0-23.0) mg/dL Creatinine 0.8 (0.6-1.5) mg/dL Est Cr Clr Drug Dosing 131.34 mL/min Estimated GFR (MDRD) > 60.0 ml/min Glucose 65 (60-110) mg/dL Calcium 8.0 L (8.8-10.8) mg/dL Med Orders - Current: Current Medications Hydromorphone HCl (Dilaudid) 1 mg IVPUSH Q2H PRN PRN Reason: Pain Last Admin: 09/06/16 21:32 Dose: 1 mg Sodium Chloride (Normal Saline) 1,000 mls @ 125 mls/hr IV ASDIRECTED LOLA Last Admin: 09/07/16 03:06 Dose: 125 mls/hr Pantoprazole Sodium 40 mg/ (Sodium Chloride) 10 mls @ 300 mls/hr IVPUSH Q24H [facility] Last Admin: 09/06/16 10:56 Dose: 300 mls/hr Ondansetron HCl (Zofran) 4 mg IVPUSH Q4H PRN PRN Reason: Nausea/Vomiting Last Admin: 09/06/16 21:29 Dose: 4 mg Phenol/Menthol (Chloraseptic Throat [place]) 1 ml MUCMEM Q2H PRN PRN Reason: NG tube irritation Last Admin: 09/07/16 09:12 Dose: 2 spr Sodium Chloride (Saline Flush) 10 ml FLUSH ASDIRECTED PRN PRN Reason: Keep Vein Open Sodium Chloride (Saline Flush) 2.5 ml FLUSH ASDIRECTED PRN PRN Reason: Keep Vein Open Discontinued Medications Benzocaine (Hurricaine One 20%) 1 each MUCMEM ONETIME ONE Stop: 09/06/16 14:26 Last Admin: 09/06/16 14:56 Dose: 1 each Hydromorphone HCl (Dilaudid) 1 mg IVPUSH ONETIME ONE Stop: 09/05/16 20:47 Last Admin: 09/05/16 21:21 Dose: 1 mg Hydromorphone HCl (Dilaudid) 1 mg IVPUSH ONETIME ONE Stop: 09/05/16 22:36 Last Admin: 09/05/16 22:38 Dose: 1 mg Hydromorphone HCl (Dilaudid) 0.5 mg IVPUSH Q2H PRN PRN Reason: Pain Last Admin: 09/06/16 01:09 Dose: 0.5 mg Hydromorphone HCl (Dilaudid) 0.2 mg IVPUSH Q2H PRN PRN Reason: Pain Hydromorphone HCl (Dilaudid) 0.5 mg IVPUSH Q2H PRN PRN Reason: Pain Hydromorphone HCl (Dilaudid) 0.5 mg IVPUSH Q2H PRN PRN Reason: Pain Last Admin: 09/06/16 13:09 Dose: 0.5 mg Hydromorphone HCl (Dilaudid) 0.5 mg IVPUSH ONETIME LOLA Stop: 09/06/16 09:45 Last Admin: 09/06/16 09:32 Dose: 0.5 mg Sodium Chloride (Normal Saline) 1,000 mls @ 999 mls/hr IV STAT ONE Stop: 09/05/16 21:46 Last Admin: 09/05/16 20:57 Dose: 999 mls/hr Sodium Chloride (Normal Saline) 1,000 mls @ 150 mls/hr IV ASDIRECTED LOLA Last Infusion: 09/05/16 23:31 Dose: 150 mls/hr Iopamidol (Isovue Multipack-370 (76%)) 100 ml IVPUSH ONETIME STA Stop: 09/05/16 21:25 Last Admin: 09/05/16 21:00 Dose: 100 ml Ondansetron HCl (Zofran) 4 mg IVPUSH ONETIME ONE Stop: 09/05/16 20:47 Last Admin: 09/05/16 21:20 Dose: 4 mg Ondansetron HCl (Zofran) 4 mg IVPUSH ONETIME ONE Stop: 09/05/16 23:46 Last Admin: 09/05/16 23:49 Dose: 4 mg Pantoprazole Sodium (Protonix Iv) 80 mg IVPUSH .BOLUS ONE Stop: 09/05/16 20:47 Last Admin: 09/05/16 21:20 Dose: 80 mg - Exam General: alert, oriented, cooperative, no acute distress HEENT: Pupils equal, Pupils reactive Neck: supple Lungs: Clear to auscultation, Normal respiratory effort Cardiovascular: Regular Rate, Regular Rhythm, No Murmurs. No: Tachycardia Abdomen: soft, no tenderness, no distension, abnormal bowel sounds (minimal bowel sounds ). No: rigidity, rebound, guarding (Male) Exam: No hernia Back Exam: normal inspection Extremities: no edema Consult PN Assessment/Plan Procedures: Procedures COMPLETE CBC AUTOMATED (08/17/16) METABOLIC PANEL TOTAL CA (08/17/16) ROUTINE VENIPUNCTURE (08/17/16) URINALYSIS AUTO W/SCOPE (08/17/16) (1) Ileus SNOMED Code(s): 596186140 Code(s): K56.7 - ILEUS, UNSPECIFIED Priority: High Current Visit: Yes (2) Peutz-Jeghers syndrome SNOMED Code(s): 91213629 Code(s): Q85.8 - OTHER PHAKOMATOSES, NOT ELSEWHERE CLASSIFIED Priority: High Current Visit: Yes (3) History of incisional hernia repair SNOMED Code(s): 277525355 Code(s): Z98.890 - OTHER SPECIFIED POSTPROCEDURAL STATES; Z87.19 - PERSONAL HISTORY OF OTHER DISEASES OF THE DIGESTIVE SYSTEM Priority: High Current Visit: Yes (4) Small bowel obstruction SNOMED Code(s): 171035983 Code(s): K56.69 - OTHER INTESTINAL OBSTRUCTION Priority: High Current Visit: Yes Problem List Initiated/Reviewed/Updated: Yes Plan: Would keep NG in place today. Continue ambulation. If no BM/flatus today, would transfer patient to [place] tomorrow to GI service.
[2016-09-07] MEDS: Pantoprazole 40 MG in Sodium Chloride 0.9% 10 ML IVPUSH SCH (10:35)
[2016-09-07] MEDS: HYDROmorphone 1 MG/ML Syringe IVPUSH PRN (21:39)
[2016-09-08] MEDS: Sodium Chloride 0.9% 1,000 ML IV SCH ×2 (03:25→11:41)
[2016-09-08 05:51] LABS: CHLORIDE,CL 108 mmol/L (98-110); SODIUM,NA 140 mmol/L (136-146)
--- NOTE | 2016-09-08 08:19 | PCM.PN ---
- General Info Date of Service: 09/08/16 Admission Dx/Problem (Free Text): Admission Diagnosis/Problem Admission Diagnosis/Problem Small bowel obstruction Subjective Update: Patient denying much abdominal pain. No more nausea and vomiting. Has had no bowel movements. Has passed flatus x2, yesterday evening and once overnight. NG in place and to LIWS continuing to drain. No chest pain, palpitations, or sob. Very eager to get things moving and wanting to be discharged soon. Functional Status: Reports: pain controlled, ambulating, urinating - Review of Systems General: Reports: No Symptoms. Denies: Fever HEENT: Reports: no symptoms. Denies: sinus congestion, sore throat Pulmonary: Reports: no symptoms. Denies: shortness of breath, cough, sputum Cardiovascular: Reports: No Symptoms. Denies: Chest Pain Gastrointestinal: Reports: Flatus. Denies: Abdominal pain, Nausea, Vomiting Genitourinary: Reports: no symptoms. Denies: dysuria Musculoskeletal: Reports: no symptoms Skin: Reports: no symptoms Neurological: Reports: No Symptoms Psychiatric: Reports: no symptoms - Patient Data Vitals - most recent: Last Vital Signs Temp 97.6 F 09/08/16 04:00 Pulse 74 09/07/16 20:00 Resp 17 09/08/16 04:00 BP 132/72 09/08/16 04:00 Pulse Ox 99 09/08/16 04:00 Weight - most recent: 83.28 kg I&O - last 24 hours: Intake & Output 09/07/16 09/08/16 09/08/16 22:59 06:59 14:59 Intake Total 2005 1000 Output Total 1175 1450 Balance 831 -450 Lab Results last 24 hrs: Laboratory Results - last 24 hr 09/08/16 09/08/16 Range/Units 04:18 04:18 WBC 5.03 (4.0-11.0) K/uL RBC 6.26 H (4.50-5.90) M/uL Hgb 10.6 L (13.0-17.0) g/dL Hct 34.6 L (38.0-50.0) % MCV 55.3 L (80.0-98.0) fL MCH 16.9 L (27.0-32.0) pg MCHC 30.6 L (31.0-37.0) g/dL RDW Std Deviation 42.7 (28.0-62.0) fl RDW Coeff of David 22 H (11.0-15.0) % Plt Count 268 (150-400) K/uL Neut % (Auto) 64.0 (48.0-80.0) % Lymph % (Auto) 23.7 (16.0-40.0) % [place] % (Auto) 10.7 (0.0-15.0) % Eos % (Auto) 1.2 (0.0-7.0) % Baso % (Auto) 0.4 (0.0-1.5) % Neut # 3.2 (1.4-5.7) K/uL Lymph # 1.2 (0.6-2.4) K/uL Garza # 0.5 (0.0-0.8) K/uL Eos # 0.1 (0.0-0.7) K/uL Baso # 0.0 (0.0-0.1) K/uL Nucleated RBC % 0.0 /100WBC Nucleated RBCs # 0 K/uL Sodium 140 (136-146) mmol/L Potassium 3.9 (3.5-5.1) mmol/L Chloride 108 (98-110) mmol/L Carbon Dioxide 20 L (21-31) mmol/L BUN 7 (6.0-23.0) mg/dL Creatinine 0.7 (0.6-1.5) mg/dL Est Cr Clr Drug Dosing 150.10 mL/min Estimated GFR (MDRD) > 60.0 ml/min Glucose 55 L (60-110) mg/dL Calcium 8.1 L (8.8-10.8) mg/dL Med Orders - Current: Current Medications Hydromorphone HCl (Dilaudid) 1 mg IVPUSH Q2H PRN PRN Reason: Pain Last Admin: 09/07/16 21:39 Dose: 1 mg Sodium Chloride (Normal Saline) 1,000 mls @ 125 mls/hr IV ASDIRECTED LOLA Last Admin: 09/08/16 03:25 Dose: 125 mls/hr Pantoprazole Sodium 40 mg/ (Sodium Chloride) 10 mls @ 300 mls/hr IVPUSH Q24H LOLA Last Admin: 09/07/16 10:35 Dose: 300 mls/hr Ondansetron HCl (Zofran) 4 mg IVPUSH Q4H PRN PRN Reason: Nausea/Vomiting Last Admin: 09/06/16 21:29 Dose: 4 mg Phenol/Menthol (Chloraseptic Throat [place]) 1 ml MUCMEM Q2H PRN PRN Reason: NG tube irritation Last Admin: 09/07/16 09:12 Dose: 2 spr Sodium Chloride (Saline Flush) 10 ml FLUSH ASDIRECTED PRN PRN Reason: Keep Vein Open Sodium Chloride (Saline Flush) 2.5 ml FLUSH ASDIRECTED PRN PRN Reason: Keep Vein Open Discontinued Medications Benzocaine (Hurricaine One 20%) 1 each MUCMEM ONETIME ONE Stop: 09/06/16 14:26 Last Admin: 09/06/16 14:56 Dose: 1 each Hydromorphone HCl (Dilaudid) 1 mg IVPUSH ONETIME ONE Stop: 09/05/16 20:47 Last Admin: 09/05/16 21:21 Dose: 1 mg Hydromorphone HCl (Dilaudid) 1 mg IVPUSH ONETIME ONE Stop: 09/05/16 22:36 Last Admin: 09/05/16 22:38 Dose: 1 mg Hydromorphone HCl (Dilaudid) 0.5 mg IVPUSH Q2H PRN PRN Reason: Pain Last Admin: 09/06/16 01:09 Dose: 0.5 mg Hydromorphone HCl (Dilaudid) 0.2 mg IVPUSH Q2H PRN PRN Reason: Pain Hydromorphone HCl (Dilaudid) 0.5 mg IVPUSH Q2H PRN PRN Reason: Pain Hydromorphone HCl (Dilaudid) 0.5 mg IVPUSH Q2H PRN PRN Reason: Pain Last Admin: 09/06/16 13:09 Dose: 0.5 mg Hydromorphone HCl (Dilaudid) 0.5 mg IVPUSH ONETIME LOLA Stop: 09/06/16 09:45 Last Admin: 09/06/16 09:32 Dose: 0.5 mg Sodium Chloride (Normal Saline) 1,000 mls @ 999 mls/hr IV STAT ONE Stop: 09/05/16 21:46 Last Admin: 09/05/16 20:57 Dose: 999 mls/hr Sodium Chloride (Normal Saline) 1,000 mls @ 150 mls/hr IV ASDIRECTED LOLA Last Infusion: 09/05/16 23:31 Dose: 150 mls/hr Iopamidol (Isovue Multipack-370 (76%)) 100 ml IVPUSH ONETIME STA Stop: 09/05/16 21:25 Last Admin: 09/05/16 21:00 Dose: 100 ml Ondansetron HCl (Zofran) 4 mg IVPUSH ONETIME ONE Stop: 09/05/16 20:47 Last Admin: 09/05/16 21:20 Dose: 4 mg Ondansetron HCl (Zofran) 4 mg IVPUSH ONETIME ONE Stop: 09/05/16 23:46 Last Admin: 09/05/16 23:49 Dose: 4 mg Pantoprazole Sodium (Protonix Iv) 80 mg IVPUSH .BOLUS ONE Stop: 09/05/16 20:47 Last Admin: 09/05/16 21:20 Dose: 80 mg - Exam General: alert, oriented, cooperative HEENT: Pupils equal, Pupils reactive, EOMI, Mucous membr. 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 Code(s): Q85.8 - OTHER PHAKOMATOSES, NOT ELSEWHERE CLASSIFIED Status: Acute Priority: High Current Visit: Yes (2) Small bowel obstruction SNOMED Code(s): 361532400 Code(s): K56.69 - OTHER INTESTINAL OBSTRUCTION Status: Acute Priority: High Current Visit: Yes (3) Hx of resection of small bowel SNOMED Code(s): 287364344, 657575370 Code(s): Z90.49 - ACQUIRED ABSENCE OF OTHER SPECIFIED PARTS OF DIGESTIVE TRACT Status: Acute Current Visit: Yes - Problem List Review Problem List Initiated/Reviewed/Updated: Yes - My Orders Last 24 Hours: My Active Orders 09/09/16 05:00 BMP [BASIC METABOLIC PANEL,BMP] [CHEM] DAILY CBC WITH AUTO DIFF [HEME] DAILY - Plan Plan:: 31 year old male admitted with SBO with pmh of Puetz Jeghers syndrome. 1. SBO: Cont. IVF NS 125. Flatus x2 since yesterday evening. NG 500 out overnight. Will Continue NPO, dilaudid, and zofran prn. Will obtain abd xray today to evaluate SBO. Speak with Dr. Wilder today as well. As per Dr. Oviedo , GI specialist from [place], he recommends 48-72 hrs of observation before possible transfer to [place] for surgical intervention. Will also continue to keep in contact and let his local GI specialist in [place], Dr. Sierra, of his status. Encouraged him to continue to be up and ambulating today VTE: SCDS Dispo: 2-4 days.
[2016-09-08] MEDS: Pantoprazole 40 MG in Sodium Chloride 0.9% 10 ML IVPUSH SCH (09:21)
--- NOTE | 2016-09-08 09:59 | CR ---
EXAMINATION: Abdomen HISTORY: Small bowel obstruction COMPARISON: 09/06/2016 TECHNIQUE: AP and upright views FINDINGS: There is an NG tube noted with tip in the stomach. There is a single loop of prominently d ilated bowel within the midabdomen, this difficult to discern between large and small bowel. Otherwi se there is mild loss of stool and gas within the colon, similar to the previous radiographs. No abn ormal calcifications. Suture lines are noted within the right lower quadrant. No free air under the diaphragm. IMPRESSION: 1. Single loop of persistent dilated bowel within the mid abdomen, at is difficult to discern if thi s is larger small bowel. Continued follow-up may be beneficial.
--- NOTE | 2016-09-08 12:13 | PCM.DCSUM1 ---
Discharge Summary - Hospital Course Brief History: This 31 year old male with pmh of Peutz-Jeghers syndrome and abdominal surgery for bowel resection "years ago" and has mesh in place. He states he normally has 4-5 bowel movements a day which are loose. He has not noticed black or bloody stools. 09/05/2016 he had only 1 BM which is unusual for him. He presented to the ED with periumbilical pain that started 09/05/2016 around 7 am, but subsided on its own. Then around 12 noon after eating chips and gatorade he started feeling very bloated and have nausea and vomiting intermittently. He denies fevers, chest pain or palpitations or SOB. The pain is localized to upper mid abdomen and periumbilical and is constant with intermittently cramping and increase in pain. He does not smoke or use tobacco products, he drinks approximately 1 beer a day, and denies recreational drug use. In the ED, WBC 9,460, hgb 12.3. lactate 2.1, BUN 7 Cr 0.9. UA negative. A CT Abd/pelvis was obtained which revealed "small bowel obstruction, no definite transition point identified. Small bowel intussesception within the LLQ, but this did not appear to be the cause of the small bowel obstruction since bowel loops directly proximal to this are not dilated, a mass lesion acting as a lead point can not be excluded, GI consultation is recommended, post operative changes of the ileococlic anastomosis and ventral herniorrhaphy". General Surgeon, Dr. David Wilder was consulted regarding this admission. He recommended conservative treatment, but to also contact GI specialist, Dr. Sierra in [place] who is familiar with this patient. I spoke with Dr. Sierra regarding patient admission and SBO. He reports Kieran is supposed to follow yearly for EGD/colonoscopy due to pmh. He has not been seen in over 3 years. He is suspicious this obstruction could be caused by a polyp, in which case he recommended transfer to a tertiary center such as [facility] or [facility]. - Discharge Data Discharge Date: 09/08/16 Discharge Disposition: DC/Tfer to Acute Hospital 02 Condition: Fair - Discharge Diagnosis/Problem(s) (1) Peutz-Jeghers syndrome SNOMED Code(s): 95219392 ICD Code: Q85.8 - OTHER PHAKOMATOSES, NOT ELSEWHERE CLASSIFIED Status: Acute Priority: High Current Visit: Yes (2) Small bowel obstruction SNOMED Code(s): 797398309 ICD Code: K56.69 - OTHER INTESTINAL OBSTRUCTION Status: Acute Priority: High Current Visit: Yes (3) Hx of resection of small bowel SNOMED Code(s): 287866784, 275771268 ICD Code: Z90.49 - ACQUIRED ABSENCE OF OTHER SPECIFIED PARTS OF DIGESTIVE TRACT Status: Acute Current Visit: Yes - Patient Instructions Diet: NPO Activity: As Tolerated - Discharge Plan Home Medications: Home Meds Omeprazole Magnesium [Prilosec] 10 mg PO DAILY 09/05/16 [History] Referrals: Nuno Galvan MD [Primary Care Provider] - - Discharge Summary/Plan Comment DC Time >30 min.: No Discharge Summary/Plan Comment: Discharge diagnoses Persistent SBO Peutz Jeghers syndrome Spoke with Dr. Oviedo, GI specialist from [facility] regarding patient and possible transfer on 09/06/2016. He recommended conservative treatment at that time, NPO, NG to LIWS, IVFs and pain medication. He recommends give him 48-72 hours with this treatment. If SBO does not open up and NG is still draining call him back and transfer would be considered at that time for possible surgery. Today, 2016 patient passed slight flatus last evening, but nothing further. His NG remains in place and continued to drain 500 ml in 12 hrs. Repeat abdominal Xray done today which revealed continued dilation which has increased to 5.6 cm of small bowel. I again called Dr. Oviedo at [facility] today who has kindly accepted patient for transfer. Dr. Wilder, our local general surgeon agrees with recommendation for transfer due to Peutz Jeghers as well patient's GI speciliast Dr. Sierra in [place], [place] who recommended transfer to [facility] due to persistent SBO which maybe secondary to Peutz Jeghers or adhesive disease, in which he has had extensive abdominal surgeries. Kieran and updated and are in agreement for acute transfer due to persisten SBO. During transfer NG to LI suction to be continued along with NPO status and IVFs. Disk to be made with imaging completed at our facility and to be sent with patient. I appreciate Dr. Wilder and Dr. Oviedo' assistance with this patient. - General Info Date of Service: 09/08/16 Admission Dx/Problem (Free Text: Admission Diagnosis/Problem Admission Diagnosis/Problem Small bowel obstruction Subjective Update: Patient having intermittent abdominal pain. No nausea and vomiting. Has had no bowel movements. Has passed flatus x2, yesterday evening and once overnight. NG in place and to LIWS continuing to drain. No chest pain, palpitations, or sob. Functional Status: Reports: pain controlled, ambulating, urinating - Review of Systems General: Reports: No Symptoms. Denies: Fever HEENT: Reports: no symptoms, other (R nare irritation due to NG,). Denies: sore throat Pulmonary: Reports: no symptoms. Denies: shortness of breath, cough, sputum Cardiovascular: Denies: Chest Pain, Palpitations, Edema Gastrointestinal: Reports: Abdominal pain (intermittently), Constipation. Denies: Flatus (no flatus this morning or early afternoon), Nausea, Vomiting Genitourinary: Reports: no symptoms Musculoskeletal: Reports: no symptoms Skin: Reports: no symptoms Neurological: Reports: No Symptoms Psychiatric: Reports: no symptoms - Patient Data Vitals - Most Recent: Last Vital Signs Temp 97.5 F 09/08/16 08:00 Pulse 84 09/08/16 08:00 Resp 18 09/08/16 08:00 BP 127/75 09/08/16 08:00 Pulse Ox 100 09/08/16 08:00 Weight - Most Recent: 83.28 kg I&O - Last 24 hours: Intake & Output 09/07/16 09/08/16 09/08/16 22:59 06:59 14:59 Intake Total 2005 1000 Output Total 1175 1450 Balance 831 -450 Lab Results - Last 24 hrs: Laboratory Results - last 24 hr 09/08/16 09/08/16 Range/Units 04:18 04:18 WBC 5.03 (4.0-11.0) K/uL RBC 6.26 H (4.50-5.90) M/uL Hgb 10.6 L (13.0-17.0) g/dL Hct 34.6 L (38.0-50.0) % MCV 55.3 L (80.0-98.0) fL MCH 16.9 L (27.0-32.0) pg MCHC 30.6 L (31.0-37.0) g/dL RDW Std Deviation 42.7 (28.0-62.0) fl RDW Coeff of David 22 H (11.0-15.0) % Plt Count 268 (150-400) K/uL Neut % (Auto) 64.0 (48.0-80.0) % Lymph % (Auto) 23.7 (16.0-40.0) % [place] % (Auto) 10.7 (0.0-15.0) % Eos % (Auto) 1.2 (0.0-7.0) % Baso % (Auto) 0.4 (0.0-1.5) % Neut # 3.2 (1.4-5.7) K/uL Lymph # 1.2 (0.6-2.4) K/uL [place] # 0.5 (0.0-0.8) K/uL Eos # 0.1 (0.0-0.7) K/uL Baso # 0.0 (0.0-0.1) K/uL Nucleated RBC % 0.0 /100WBC Nucleated RBCs # 0 K/uL Sodium 140 (136-146) mmol/L Potassium 3.9 (3.5-5.1) mmol/L Chloride 108 (98-110) mmol/L Carbon Dioxide 20 L (21-31) mmol/L BUN 7 (6.0-23.0) mg/dL Creatinine 0.7 (0.6-1.5) mg/dL Est Cr Clr Drug Dosing 150.10 mL/min Estimated GFR (MDRD) > 60.0 ml/min Glucose 55 L (60-110) mg/dL Calcium 8.1 L (8.8-10.8) mg/dL Med Orders - Current: Current Medications Hydromorphone HCl (Dilaudid) 1 mg IVPUSH Q2H PRN PRN Reason: Pain Last Admin: 09/07/16 21:39 Dose: 1 mg Sodium Chloride (Normal Saline) 1,000 mls @ 125 mls/hr IV ASDIRECTED LOLA Last Admin: 09/08/16 11:41 Dose: 125 mls/hr Pantoprazole Sodium 40 mg/ (Sodium Chloride) 10 mls @ 300 mls/hr IVPUSH Q24H [facility] Last Admin: 09/08/16 09:21 Dose: 300 mls/hr Ondansetron HCl (Zofran) 4 mg IVPUSH Q4H PRN PRN Reason: Nausea/Vomiting Last Admin: 09/06/16 21:29 Dose: 4 mg Phenol/Menthol (Chloraseptic Throat [place]) 1 ml MUCMEM Q2H PRN PRN Reason: NG tube irritation Last Admin: 09/07/16 09:12 Dose: 2 spr Sodium Chloride (Saline Flush) 10 ml FLUSH ASDIRECTED PRN PRN Reason: Keep Vein Open Sodium Chloride (Saline Flush) 2.5 ml FLUSH ASDIRECTED PRN PRN Reason: Keep Vein Open Discontinued Medications Benzocaine (Hurricaine One 20%) 1 each MUCMEM ONETIME ONE Stop: 09/06/16 14:26 Last Admin: 09/06/16 14:56 Dose: 1 each Hydromorphone HCl (Dilaudid) 1 mg IVPUSH ONETIME ONE Stop: 09/05/16 20:47 Last Admin: 09/05/16 21:21 Dose: 1 mg Hydromorphone HCl (Dilaudid) 1 mg IVPUSH ONETIME ONE Stop: 09/05/16 22:36 Last Admin: 09/05/16 22:38 Dose: 1 mg Hydromorphone HCl (Dilaudid) 0.5 mg IVPUSH Q2H PRN PRN Reason: Pain Last Admin: 09/06/16 01:09 Dose: 0.5 mg Hydromorphone HCl (Dilaudid) 0.2 mg IVPUSH Q2H PRN PRN Reason: Pain Hydromorphone HCl (Dilaudid) 0.5 mg IVPUSH Q2H PRN PRN Reason: Pain Hydromorphone HCl (Dilaudid) 0.5 mg IVPUSH Q2H PRN PRN Reason: Pain Last Admin: 09/06/16 13:09 Dose: 0.5 mg Hydromorphone HCl (Dilaudid) 0.5 mg IVPUSH ONETIME LOLA Stop: 09/06/16 09:45 Last Admin: 09/06/16 09:32 Dose: 0.5 mg Sodium Chloride (Normal Saline) 1,000 mls @ 999 mls/hr IV STAT ONE Stop: 09/05/16 21:46 Last Admin: 09/05/16 20:57 Dose: 999 mls/hr Sodium Chloride (Normal Saline) 1,000 mls @ 150 mls/hr IV ASDIRECTED LOLA Last Infusion: 09/05/16 23:31 Dose: 150 mls/hr Iopamidol (Isovue Multipack-370 (76%)) 100 ml IVPUSH ONETIME STA Stop: 09/05/16 21:25 Last Admin: 09/05/16 21:00 Dose: 100 ml Ondansetron HCl (Zofran) 4 mg IVPUSH ONETIME ONE Stop: 09/05/16 20:47 Last Admin: 09/05/16 21:20 Dose: 4 mg Ondansetron HCl (Zofran) 4 mg IVPUSH ONETIME ONE Stop: 09/05/16 23:46 Last Admin: 09/05/16 23:49 Dose: 4 mg Pantoprazole Sodium (Protonix Iv) 80 mg IVPUSH .BOLUS ONE Stop: 09/05/16 20:47 Last Admin: 09/05/16 21:20 Dose: 80 mg - Exam General: Reports: alert, oriented, cooperative HEENT: Reports: Pupils equal, Pupils reactive, EOMI, Mucous membr. moist/pink, Other (No skin breakdown noted to R nare with NG tube in place) Neck: Reports: supple Lungs: Reports: Clear to auscultation, Normal respiratory effort Cardiovascular: Reports: Regular Rate, Regular Rhythm, No Murmurs Abdomen: Reports: soft, tenderness (slight tenderness periumbilical), abnormal bowel sounds (hypoactive ). Denies: rigidity, rebound, distension Extremities: Reports: no edema, normal pulses Neurological: Reports: no new focal deficit Psy/Mental Status: Reports: alert, normal affect, normal mood *Q Meaningful Use (DIS) - VTE *Q VTE Criteria *Q: - Stroke *Q Stroke Criteria *Q: - AMI *Q AMI Criteria *Q:
[2016-09-08 15:15] VITALS: BP 131/79
--- NOTE | 2016-09-08 16:48 | CT ---
EXAM DATE: 09/06/16 PATIENT'S AGE: 31 Patient: RIA MARQUEZ Facility: [place], [place] Site . Site : 1985 Study: CT Abdomen/Pelvis [id number]/13/2017 10:29:21 PM Ordering Physician: Viviana Carney Final Report: INDICATION: Abdominal pain TECHNIQUE: CT abdomen and pelvis acquired with IV contrast. COMPARISON: None FINDINGS: Lower chest: Unremarkable. Liver: Unremarkable. Spleen: Unremarkable. Pancreas: Unremarkable. Gallbladder and bile ducts: Unremarkable. Adrenal glands: Unremarkable. Kidneys: Simple cyst on the right kidney. GI tract: Ileocolic anastomotic suture material. There are several loops of dilated small bowel reaching a maximum diameter of 4.6 cm. A definite transition zone is not identified. There is also a small bowel intussusception within the left lower quadrant, best seen on image numbers [id number] on series 203. This does not appear to be the cause of the small bowel obstruction since bowel loops directly proximal to this are not dilated. Vascular structures: Unremarkable. Lymph nodes: Unremarkable. Miscellaneous: Status post ventral herniorrhaphy with mesh placement. Pelvic Organs: Unremarkable. Bones: Unremarkable for age. IMPRESSION: 1. Small bowel obstruction. A definite transition zone is not identified. 2. Small bowel intussusception within the left lower quadrant. This does not appear to be the cause of the small bowel obstruction since bowel loops directly proximal to this are not dilated. A mass lesion acting as a lead point cannot be excluded and GI consultation is recommended. 3. Postoperative changes of an ileocolic anastomosis and ventral herniorrhaphy. Dictated by Rivka Prado MD @ Sep 05 2016 10:38PM (Electronic Signature) Report Signed by Proxy and Original Signed Document filed in the Medical Record. [facility]
== END 2016-09-08 13:45 | DRG 247 ==
LOC: MW.ED 20:28 → MW.MS 23:10 → OBSVTOIN 09-06 15:00 → MW.MS 09-06 15:49
PROVIDERS: ADMIT Internal Medicine; ATTEND Internal Medicine
DX: K56.69 Other intestinal obstruction (principal); Q85.8 Other phakomatoses, not elsewhere classified; Z90.49 Acquired absence of other specified parts of digestive tract; Z88.8 Allergy status to other drugs, medicaments and biological substances; Z79.899 Other long term (current) drug therapy; Z87.891 Personal history of nicotine dependence
CPT/HCPCS: 36415; 74000; 74000-26; 74020; 74020-26; 74177; 74177-26; 80048; 80053; 81001; 82150; 83605; 83690; 85025; 96361; 96374; 96375; 96376; 99285; 99285-25; A9270-GY; C9113; G0378; J1170; J2405; J7040; Q9967

== ENCOUNTER 2021-08-29 11:57 | Emergency (ER) | payer BC ==
[2021-08-29 12:21] VITALS: BP 149/100; PULSE 128
== END 2021-08-29 12:38 | disposition home or self-care (01) ==
LOC: MW.ED 11:57
DX: M54.50 Low back pain, unspecified (principal); Z88.6 Allergy status to analgesic agent
CPT/HCPCS: 99283

== ENCOUNTER 2023-02-07 22:01 | Inpatient (IN) | payer BC ==
[2023-02-07] MEDS ORDERED: Morphine 4 MG/ML Syringe IVPUSH ONE (22:24)
[2023-02-07] MEDS ORDERED: Famotidine 20 MG/2 ML SDV IVPUSH ONE (22:24)
[2023-02-07] MEDS ORDERED: Sodium Chloride 0.9% 1,000 ML IV ONE (22:24)
[2023-02-07] MEDS ORDERED: Ondansetron 4 MG/2 ML SDV IVPUSH ONE ×2 (22:24→23:50)
[2023-02-07] MEDS ORDERED: Acetaminophen 1,000 MG in Premix Bag 1 BAG IV ONE (22:25)
[2023-02-07 22:47] LABS: BASOPHILS PERCENT AUTO 0.1 % (0.0-1.5); EOSINOPHILS PERCENT AUTO 0.1 % (0.0-7.0); HEMATOCRIT 44.7 % (38.0-50.0); HEMOGLOBIN 16.2 g/dL (13.0-17.0); LYMPHOCYTES PERCENT AUTO 9.3 % (16.0-40.0); MEAN CORPUSCULAR HEMOGLOBIN 26.5 pg (27.0-32.0); MEAN CORPUSCULAR HGB CONC 36.2 g/dL (31.0-37.0); MONOCYTES ABSOLUTE AUTO 1.1 K/uL (0.0-0.8); MONOCYTES PERCENT AUTO 10.2 % (0.0-15.0); NEUTROPHILS ABSOLUTE AUTO 8.4 K/uL (1.4-5.7); NEUTROPHILS PERCENT AUTO 80.3 % (48.0-80.0); NRBC ABSOLUTE 0 K/uL; PLATELET COUNT,PLT 319 K/uL (150-400); RED BLOOD CELL COUNT 6.12 M/uL (4.50-5.90); WHITE BLOOD CELL COUNT,WBC 10.44 K/uL (4.0-11.0)
[2023-02-07 23:00] LABS: INR 1.1 (0.86-1.11); PTT,PARTIAL THROMBOPLSTIN TIME 29.6 SEC (23.9-30.7)
[2023-02-07 23:10] LABS: A/G RATIO 0.6 (0.9-1.6); ALBUMIN 3.2 g/dL (3.4-5.0); BILIRUBIN TOTAL 1.6 mg/dL (0.2-1.0); CALCIUM 9.8 mg/dL (8.5-10.1); CARBON DIOXIDE,CO2 31.6 mmol/L (21.0-32.0); CREATININE 1.5 mg/dL (0.8-1.3); EST CRCL DRUG DOSING (CG) 66.12 mL/min; POTASSIUM,K 3.4 mmol/L (3.5-5.1); PROTEIN TOTAL,TP 8.3 g/dL (6.4-8.2)
[2023-02-07 23:26] LABS: LACTIC ACID 1.3 mmol/L (0.4-2.0)
[2023-02-08] MEDS ORDERED: Iopamidol 755 MG/ML 500 ML Multipack Bottle IVPUSH ONE (00:11)
[2023-02-08] MEDS ORDERED: Piperacillin/Tazobactam 4.5 GM in Sodium Chloride 0.9% 100 ML IV ONE (01:24)
[2023-02-08] MEDS ORDERED: Morphine 4 MG/ML Syringe IVPUSH ONE (01:43)
[2023-02-08] MEDS ORDERED: Ondansetron 4 MG/2 ML SDV IVPUSH ONE (01:43)
[2023-02-08] MEDS ORDERED: Sodium Chloride 0.9% 1,000 ML IV ONE (01:44)
[2023-02-08] MEDS ORDERED: Benzocaine 20% Topical Spray UD MUCMEM ONE (02:19)
[2023-02-08] MEDS ORDERED: Midazolam 1 MG/ML 2 ML SDV IVPUSH ONE (02:53)
[2023-02-08] MEDS ORDERED: Lidocaine 1% 5 ML VIAL ONE (02:53)
[2023-02-08 03:23] LABS: APPEARANCE,URINE CLEAR; BILIRUBIN,URINE NEGATIVE (NEGATIVE); COLOR,URINE YELLOW; GLUCOSE,URINE NEGATIVE (NEGATIVE); KETONES,URINE TRACE mg/dL (NEGATIVE); LEUKOCYTE ESTERASE,URINE NEGATIVE (NEGATIVE); NITRITE,URINE POSITIVE (NEGATIVE); OCCULT BLOOD,URINE TRACE-INTACT (NEGATIVE); PROTEIN,URINE NEGATIVE (NEGATIVE); UROBILINOGEN,URINE 0.2 EU/dL (<2.0)
[2023-02-08 03:40] LABS: BACTERIA,URINE FEW (NEGATIVE); EPITHELIAL CELLS,URINE FEW (NONE-FEW); RBC,URINE 0-2 (0-2/HPF)
[2023-02-08] MEDS ORDERED: Sodium Chloride 0.9% 1,000 ML IV SCH (05:00)
[2023-02-08] MEDS ORDERED: oxyCODONE 5 MG Tab PO PRN ×2 (05:00→13:00)
[2023-02-08] MEDS ORDERED: Ondansetron 4 MG/2 ML SDV IVPUSH PRN (05:39)
[2023-02-08] MEDS ORDERED: Albuterol/Ipratropium 3.0-0.5 MG/3 ML Neb Soln NEB PRN (05:39)
[2023-02-08] MEDS ORDERED: Acetaminophen 325 MG Tab PO PRN (05:39)
[2023-02-08] MEDS ORDERED: Sodium Chloride 0.9% 20 ML SDV IV PRN (05:39)
[2023-02-08] MEDS ORDERED: Polyethylene Glycol 3350 Powder 17 GM Packet PO PRN (05:39)
[2023-02-08] MEDS ORDERED: Sodium Chloride 0.9% 10 ML Syringe FLUSH PRN (05:39)
[2023-02-08] MEDS ORDERED: Sodium Chloride 0.9% 2.5 ML Syringe FLUSH PRN (05:39)
[2023-02-08] MEDS ORDERED: Piperacillin/Tazobactam 3.375 GM in Sodium Chloride 0.9% 100 ML IV SCH (05:45)
[2023-02-08] MEDS ORDERED: Piperacillin/Tazobactam 4.5 GM in Sodium Chloride 0.9% 100 ML IV SCH (06:00)
[2023-02-08] MEDS: Morphine 2 MG/ML SYRINGE IVPUSH PRN ×3 (06:35→20:50)
[2023-02-08 06:46] LABS: BASOPHILS PERCENT AUTO 0.1 % (0.0-1.5); EOSINOPHILS PERCENT AUTO 0.1 % (0.0-7.0); HEMATOCRIT 38.2 % (38.0-50.0); HEMOGLOBIN 13.7 g/dL (13.0-17.0); LYMPHOCYTES PERCENT AUTO 13.7 % (16.0-40.0); MEAN CORPUSCULAR HEMOGLOBIN 26.4 pg (27.0-32.0); MEAN CORPUSCULAR HGB CONC 35.9 g/dL (31.0-37.0); MEAN CORPUSCULAR VOLUME 73.7 fL (80.0-98.0); MONOCYTES ABSOLUTE AUTO 0.9 K/uL (0.0-0.8); MONOCYTES PERCENT AUTO 12.6 % (0.0-15.0); NEUTROPHILS ABSOLUTE AUTO 5.1 K/uL (1.4-5.7); NEUTROPHILS PERCENT AUTO 73.5 % (48.0-80.0); NRBC ABSOLUTE 0 K/uL; PLATELET COUNT,PLT 254 K/uL (150-400); RED BLOOD CELL COUNT 5.18 M/uL (4.50-5.90); WHITE BLOOD CELL COUNT,WBC 6.99 K/uL (4.0-11.0)
[2023-02-08 07:03] LABS: CALCIUM 8.6 mg/dL (8.5-10.1); CARBON DIOXIDE,CO2 29.3 mmol/L (21.0-32.0); CREATININE 1.3 mg/dL (0.8-1.3); EST CRCL DRUG DOSING (CG) 76.29 mL/min; POTASSIUM,K 3.1 mmol/L (3.5-5.1)
[2023-02-08] MEDS: Potassium Chloride 100 ML IV SCH ×2 (08:27→12:00)
[2023-02-08] MEDS ORDERED: NS + KCl 20mEq/L 1,000 ML IV SCH (08:42)
[2023-02-08] MEDS: Pantoprazole 40 MG in Sodium Chloride 0.9% 10 ML IVPUSH SCH (09:19)
[2023-02-08] MEDS: Promethazine 25 MG/ML SDV IM PRN ×2 (10:35→17:16)
[2023-02-08] MEDS ORDERED: Sodium Chloride 0.9% 250 ML IV ONE (11:00)
[2023-02-08] MEDS: Piperacillin/Tazobactam 4.5 GM in Sodium Chloride 0.9% 100 ML IV SCH ×2 (13:07→17:59)
[2023-02-08] MEDS: Ondansetron 4 MG/2 ML SDV IVPUSH PRN ×2 (13:32→20:50)
[2023-02-08 14:21] LABS: CALCIUM 8.8 mg/dL (8.5-10.1); CARBON DIOXIDE,CO2 28.7 mmol/L (21.0-32.0); CREATININE 1.2 mg/dL (0.8-1.3); EST CRCL DRUG DOSING (CG) 82.65 mL/min; POTASSIUM,K 3.4 mmol/L (3.5-5.1)
[2023-02-08] MEDS: NS + KCl 20mEq/L 1,000 ML IV SCH (17:31)
[2023-02-09] MEDS: Piperacillin/Tazobactam 4.5 GM in Sodium Chloride 0.9% 100 ML IV SCH ×4 (00:16→18:25)
[2023-02-09] MEDS: NS + KCl 20mEq/L 1,000 ML IV SCH ×3 (01:36→18:08)
[2023-02-09] MEDS ORDERED: diphenhydrAMINE 50 MG/ML SDV ONE (03:12)
[2023-02-09] MEDS ORDERED: diphenhydrAMINE 50 MG/ML SDV IVPUSH ONE (03:25)
[2023-02-09 05:44] LABS: HEMATOCRIT 37.2 % (38.0-50.0); HEMOGLOBIN 13.3 g/dL (13.0-17.0); MEAN CORPUSCULAR HEMOGLOBIN 26.5 pg (27.0-32.0); MEAN CORPUSCULAR HGB CONC 35.8 g/dL (31.0-37.0); MEAN CORPUSCULAR VOLUME 74.1 fL (80.0-98.0); NRBC ABSOLUTE 0 K/uL; PLATELET COUNT,PLT 266 K/uL (150-400); RED BLOOD CELL COUNT 5.02 M/uL (4.50-5.90); WHITE BLOOD CELL COUNT,WBC 4.23 K/uL (4.0-11.0)
[2023-02-09 06:07] LABS: A/G RATIO 0.5 (0.9-1.6); ALBUMIN 2.4 g/dL (3.4-5.0); BILIRUBIN TOTAL 0.9 mg/dL (0.2-1.0); CALCIUM 8.3 mg/dL (8.5-10.1); CARBON DIOXIDE,CO2 27.6 mmol/L (21.0-32.0); CREATININE 1.1 mg/dL (0.8-1.3); EST CRCL DRUG DOSING (CG) 90.16 mL/min; MAGNESIUM 2.4 mg/dL (1.8-2.4); POTASSIUM,K 3.7 mmol/L (3.5-5.1)
[2023-02-09 06:47] LABS: BAND ABSOLUTE MAN 0.3; BAND PERCENT MAN 7 %; EOSINOPHILS PERCENT MAN 1 % (0.0-7.0); LYMPHOCYTES ABSOLUTE MAN 1.1 (0.6-2.4); LYMPHOCYTES PERCENT MAN 26 % (16.0-40.0); MONOCYTES ABSOLUTE MAN 0.7 (0.0-0.8); MONOCYTES PERCENT MAN 16 % (0.0-15.0); SEG NEUTROPHILS ABSOLUTE MAN 2.1 (1.4-5.7); SEG NEUTROPHILS PERCENT MAN 50 % (48.0-80.0)
[2023-02-09] MEDS: Ondansetron 4 MG/2 ML SDV IVPUSH PRN ×2 (07:57→13:36)
[2023-02-09] MEDS: Pantoprazole 40 MG in Sodium Chloride 0.9% 10 ML IVPUSH SCH (08:03)
[2023-02-09] MEDS: Promethazine 25 MG/ML SDV IM PRN ×2 (08:48→15:48)
[2023-02-09] MEDS ORDERED: Morphine 2 MG/ML SYRINGE IVPUSH PRN (08:49)
[2023-02-09] MEDS ORDERED: Naloxone 0.4 MG/ML SDV IVPUSH PRN (08:49)
[2023-02-09 09:45] LABS: LACTIC ACID 0.9 mmol/L (0.4-2.0)
[2023-02-09] MEDS ORDERED: LORazepam 2 MG/ML SDV IVPUSH ONE (13:30)
[2023-02-09] MEDS: LORazepam 2 MG/ML SDV IVPUSH PRN ×2 (17:20→21:53)
[2023-02-09] MEDS ORDERED: droPERidol 5 MG/2 ML SDV IVPUSH ONE (20:52)
[2023-02-10] MEDS ORDERED: Vancomycin 125 MG Cap PO SCH (00:07)
[2023-02-10] MEDS: Piperacillin/Tazobactam 4.5 GM in Sodium Chloride 0.9% 100 ML IV SCH ×2 (00:24→06:27)
[2023-02-10] MEDS: NS + KCl 20mEq/L 1,000 ML IV SCH ×2 (02:10→11:57)
[2023-02-10] MEDS: Vancomycin 125 MG Cap PO SCH ×3 (02:12→11:21)
[2023-02-10] MEDS ORDERED: Iopamidol 755 MG/ML 500 ML Multipack Bottle IVPUSH ONE (06:04)
[2023-02-10 06:05] LABS: BASOPHILS PERCENT AUTO 0.5 % (0.0-1.5); EOSINOPHILS PERCENT AUTO 0.7 % (0.0-7.0); HEMATOCRIT 39.2 % (38.0-50.0); HEMOGLOBIN 13.7 g/dL (13.0-17.0); LYMPHOCYTES PERCENT AUTO 15.8 % (16.0-40.0); MEAN CORPUSCULAR HEMOGLOBIN 26.3 pg (27.0-32.0); MEAN CORPUSCULAR HGB CONC 34.9 g/dL (31.0-37.0); MEAN CORPUSCULAR VOLUME 75.2 fL (80.0-98.0); MONOCYTES ABSOLUTE AUTO 0.9 K/uL (0.0-0.8); NEUTROPHILS ABSOLUTE AUTO 4.2 K/uL (1.4-5.7); NRBC ABSOLUTE 0 K/uL; PLATELET COUNT,PLT 302 K/uL (150-400); RED BLOOD CELL COUNT 5.21 M/uL (4.50-5.90); WHITE BLOOD CELL COUNT,WBC 6.09 K/uL (4.0-11.0)
[2023-02-10 06:18] LABS: CALCIUM 9.1 mg/dL (8.5-10.1); CARBON DIOXIDE,CO2 22.2 mmol/L (21.0-32.0); CREATININE 0.9 mg/dL (0.8-1.3); EST CRCL DRUG DOSING (CG) 110.2 mL/min; MAGNESIUM 2.6 mg/dL (1.8-2.4); POTASSIUM,K 3.9 mmol/L (3.5-5.1)
[2023-02-10] MEDS: Pantoprazole 40 MG in Sodium Chloride 0.9% 10 ML IVPUSH SCH ×2 (06:24→06:42)
[2023-02-10] MEDS ORDERED: metroNIDAZOLE/Normal Saline 500 MG in Premix Bag 1 BAG IV SCH (08:00)
[2023-02-10] MEDS: Promethazine 25 MG/ML SDV IM PRN (08:14)
[2023-02-10] MEDS ORDERED: Enoxaparin 40 MG/0.4 ML Syringe SUBCUT SCH (08:15)
[2023-02-10] MEDS ORDERED: Prochlorperazine 10 MG/2 ML SDV IVPUSH PRN (08:18)
[2023-02-10] MEDS: LORazepam 2 MG/ML SDV IVPUSH PRN (09:56)
[2023-02-10 11:45] VITALS: BP 153/102; PULSE 109
== END 2023-02-10 15:35 | DRG 247 ==
LOC: MW.ED 22:01 → MW.MS 02-08 03:10
PROVIDERS: ADMIT Family Medicine; ATTEND Family Medicine
PROC: 0D9670Z Drainage of Stomach with Drainage Device, Via Natural or Artificial Opening (ICD-10-PCS; principal; 2023-02-08)
DX: K56.690 Other partial intestinal obstruction (principal); N17.9 Acute kidney failure, unspecified; A04.72 Enterocolitis due to Clostridium difficile, not specified as recurrent; Q85.89 Other phakomatoses, not elsewhere classified; K21.9 Gastro-esophageal reflux disease without esophagitis; I10 Essential (primary) hypertension; E87.6 Hypokalemia; Z20.822 Contact with and (suspected) exposure to COVID-19; J98.11 Atelectasis; Z88.8 Allergy status to other drugs, medicaments and biological substances; Z79.899 Other long term (current) drug therapy; Z86.010 Personal history of colon polyps; Z90.49 Acquired absence of other specified parts of digestive tract; Z98.890 Other specified postprocedural states; Z87.81 Personal history of (healed) traumatic fracture
CPT/HCPCS: 36415; 43752; 71275; 71275-26; 74018; 74018-26; 74019; 74019-26; 74177; 74177-26; 80048; 80053; 81001; 83605; 83690; 83735; 84100; 85025; 85379; 85610; 85730; 87040; 87324; 93005; 93010; 96361; 96365; 96367; 96375; 96376; 99285; 99285-25; A9270-GY; C9113; J0131; J1200; J1650; J1790; J2060; J2250; J2270; J2405; J2543; J2550; J3480; J3490; J7030; J7050; Q9967; U0002

== ENCOUNTER 2023-04-01 14:20 | Emergency (ER) | payer BC ==
[2023-04-01] MEDS ORDERED: Lidocaine 1% with EPINEPHrine 1:100,000 20 ML MDV INJECT ONE (16:51)
[2023-04-01 18:16] VITALS: BP 127/84; PULSE 89
== END 2023-04-01 18:17 | disposition home or self-care (01) ==
LOC: MW.ED 14:20
DX: Z48.01 Encounter for change or removal of surgical wound dressing (principal); I10 Essential (primary) hypertension; Z88.8 Allergy status to other drugs, medicaments and biological substances; Z79.899 Other long term (current) drug therapy
CPT/HCPCS: 99281; 99282; J3490

== ENCOUNTER 2023-11-19 13:25 | Emergency (ER) | payer BC ==
[2023-11-19 14:52] VITALS: BP 140/91; PULSE 97
== END 2023-11-19 13:41 | disposition left against medical advice (07) ==
LOC: MW.ED 13:25
DX: Z48.02 Encounter for removal of sutures (principal)
CPT/HCPCS: 99281

== ENCOUNTER 2025-01-03 13:52 | Emergency (ER) | payer BC ==
[2025-01-03] MEDS ORDERED: Sodium Chloride 0.9% 10 ML Syringe FLUSH PRN (14:23)
[2025-01-03] MEDS ORDERED: Sodium Chloride 0.9% 2.5 ML Syringe FLUSH PRN (14:23)
[2025-01-03 14:26] LABS: BASOPHILS ABSOLUTE AUTO 0.03 K/uL (0.00-0.20); BASOPHILS PERCENT AUTO 0.5 % (0.0-1.0); EOSINOPHILS ABSOLUTE AUTO 0.08 K/uL (0.00-0.45); EOSINOPHILS PERCENT AUTO 1.4 % (0.0-6.0); IMMATURE GRAN ABSOLUTE AUTO 0.01 K/uL (0.00-0.05); IMMATURE GRAN PERCENT AUTO 0.2 % (0.0-0.4); LYMPHOCYTES ABSOLUTE AUTO 2.88 K/uL (1.00-4.80); LYMPHOCYTES PERCENT AUTO 51.9 % (24.0-44.0); MEAN PLATELET VOLUME 9.3 fL (9.4-12.4); MONOCYTES ABSOLUTE AUTO 0.49 K/uL (0.00-0.80); MONOCYTES PERCENT AUTO 8.8 % (0.0-8.0); NEUTROPHILS ABSOLUTE AUTO 2.06 K/uL (1.80-7.70); NEUTROPHILS PERCENT AUTO 37.2 % (41.0-71.0); NRBC ABSOLUTE 0.00 K/uL (0.00-0.02); NRBC PERCENT 0.0 /100WBC (0.0-0.2); PLATELET COUNT,PLT 317 K/uL (150-400); RED BLOOD CELL COUNT 5.97 M/uL (4.52-5.90); WHITE BLOOD CELL COUNT,WBC 5.55 K/uL (3.9-11.3)
[2025-01-03] MEDS: Ketorolac 30 MG/ML SDV IVPUSH ONE (14:31)
[2025-01-03 14:39] LABS: BLOOD UREA NITROGEN,BUN 13 mg/dL (7.0-18.0); CARBON DIOXIDE,CO2 25.2 mmol/L (21.0-32.0); CHLORIDE,CL 103 mmol/L (98-107); CREATININE 1.2 mg/dL (0.8-1.3); GLUCOSE RANDOM 105 mg/dL (74-106); POTASSIUM,K 4.2 mmol/L (3.5-5.1); SODIUM,NA 140 mmol/L (136-148)
[2025-01-03 14:44] LABS: ESTIMATED GFR 78 mL/min (>60)
[2025-01-03 17:05] VITALS: BP 139/99; PULSE 107
== END 2025-01-03 17:05 | disposition home or self-care (01) ==
LOC: MW.ED 13:52
DX: M94.0 Chondrocostal junction syndrome [Tietze] (principal); I10 Essential (primary) hypertension; Z88.8 Allergy status to other drugs, medicaments and biological substances; Z79.899 Other long term (current) drug therapy; Z90.49 Acquired absence of other specified parts of digestive tract
CPT/HCPCS: 36415; 71046; 71046-26; 80048; 84484; 85025; 99285